=== PATIENT | male | born 1940 | race Caucasian/White ===

== ENCOUNTER 2016-04-13 15:56 | Inpatient (IN) | payer MEDICARE, OTHER ==
[~2016-04-13] VITALS: Ht 182.9 cm; Wt 76.9 kg
--- NOTE | 2016-04-13 16:29 | REP ---
Clinical: Trauma. Comparison: 03/23/2013 . Findings: Age-related atrophy with periventricular leukomalacia and microvascular ischemic changes are appreciated. A small sub centimeter high-density focus in the high left parietal lobe (image 24 - 25) may represent a small acute parenchymal contusion. No further intracranial hemorrhage or mass/mass effect is appreciated and no extra-axial hemorrhage or collection is identified. The ventricles and sulci are symmetric. Wiley-white differentiation is maintained. Calvarium is intact. Paranasal sinuses and mastoid air cells are clear. Impression: 1. Very small, subcentimeter parenchymal contusion in the high left parietal lobe cannot be excluded. No further significant acute intracranial pathology or trauma/injury appreciated. Follow-up at 6-12 hours may be warranted. 2. Age related atrophy and microvascular ischemic changes. Signed by Cale Romo MD 04/13/2016 04:21 P
--- NOTE | 2016-04-13 16:30 | REP ---
Clinical: Trauma . Technique: Axial noncontrast images from the skull base to the thoracic inlet with coronal and sagittal re-formations Findings: Moderate to early advanced multilevel degenerative disc osteophyte complexes noted throughout the cervical spine including osteophytosis, endplate sclerosis and disc space narrowing. Normal alignment and lordosis is maintained. Cervical vertebral bodies including transverse processes and spinous processes are intact and there is no evidence for acute fracture / compression injury or subluxation. Spinal canal is patent. Posterior elements are intact. Paravertebral soft tissues are normal. Impression: Moderate to early advanced multilevel degenerative changes. No evidence for acute pathology or trauma/injury. Signed by Cale Romo MD 04/13/2016 04:22 P
[2016-04-13 17:00] LABS: BASO # 0.1 K/mm3 (0.0-0.2); BASO % 1.1 % (0.0-1.0); EOS # 0.1 K/mm3 (0.0-0.50); EOS % 2.4 % (0.0-3.0); LARGE UNSTAINED CELL # 0.1 K/mm3 (0.0-0.4); LARGE UNSTAINED CELL % 1.9 % (0.0-4.0); LYMPH # 0.8 K/mm3 (1.5-4.5); LYMPH % 11.5 % (24.0-44.0); MEAN CORPUSCULAR HEMOGLOBIN 29.8 pg (27.0-33.0); MEAN CORPUSCULAR HGB CONC 33.4 g/dl (32.0-36.5); MEAN CORPUSCULAR VOLUME 89.1 fl (80.0-96.0); MONO # 0.5 K/mm3 (0.0-0.8); MONO % 7.6 % (0.0-5.0); NEUTROPHILS # 4.5 K/mm3 (1.8-7.7); NEUTROPHILS % 75.7 % (36.0-66.0); PLATELET COUNT, AUTOMATED 219 k/mm3 (150-450); RED CELL DISTRIBUTION WIDTH 14.4 % (11.5-14.5); WHITE BLOOD COUNT 5.9 K/mm3 (4.0-10.0)
--- NOTE | 2016-04-13 17:14 | REP ---
Clinical: Trauma. Fall. Technique: Axial noncontrast images through the facial bones to include the mandible with coronal and sagittal re-formations. Findings: The osseous structures are intact and there is no evidence for fracture or dislocation. Specifically, the bilateral zygomatic arches, nasal bones, and mandible including bilateral temporomandibular joints appear normal and symmetric. The sinuses and mastoid air cells are all well aerated and clear without fluid level to suggest occult trauma. The bilateral orbits including the globes and intraconal contents appear symmetric and normal. The surrounding soft tissues are grossly unremarkable. Impression: Normal maxillofacial CT. No evidence for acute pathology or trauma/injury. Signed by Cale Romo MD 04/13/2016 05:06 P
[2016-04-13 17:30] LABS: CALCIUM LEVEL 8.9 MG/DL (8.8-10.2); CREATININE FOR GFR 1.62 MG/DL (0.70-1.30); GLOMERULAR FILTRATION RATE 44.4 (>42); POTASSIUM SERUM 4.4 MEQ/L (3.5-5.1)
[2016-04-13] MEDS ORDERED: LIDOCAINE W/EPINEPHRINE 1% 20ML VIAL As Ordered ONE (18:23)
--- NOTE | 2016-04-13 19:16 | REP ---
Clinical: Chest pain. Technique: Supine AP. Comparison: 02/06/2010. Findings: The patient is status post sternotomy and valve replacement. Lung gross demonstrate chronic changes. No acute consolidation, effusion or pneumothorax. Skeletal structures intact. Impression: No acute cardiopulmonary process appreciated. Signed by Cale Romo MD 04/13/2016 07:08 P
--- NOTE | 2016-04-13 19:18 | REP ---
Clinical: Trauma. Fall. Technique: Internal rotation, external rotation, and Y view. Findings: Degenerative changes are appreciated including cortical irregularity and subtle spurring at the acromioclavicular joint and along the inferior margin of the humeral head as well as blunting to the glenoid rim and subacromial soft tissue calcifications. No acute fracture dislocation. Impression: Osteoarthritic degenerative changes. No acute fracture or dislocation. Signed by Cale Romo MD 04/13/2016 07:09 P
[2016-04-13] MEDS ORDERED: COLA100C PO (19:58)
[2016-04-13] MEDS ORDERED: FOLI1TAB2 PO (19:58)
[2016-04-13] MEDS ORDERED: ASPI81TA7 PO (19:58)
[2016-04-13] MEDS ORDERED: SYNT50TA PO (19:58)
[2016-04-13] MEDS ORDERED: RIVA1.5C PO (19:58)
[2016-04-13] MEDS ORDERED: DIGO0.12 PO (19:58)
[2016-04-13] MEDS ORDERED: AMIO20TA PO (19:58)
[2016-04-13] MEDS ORDERED: CART120C PO (19:58)
[2016-04-13] MEDS ORDERED: RANI150T PO (19:58)
[2016-04-13] MEDS ORDERED: VITA500T3 PO (19:58)
[2016-04-13] MEDS ORDERED: VITA200015 PO (19:58)
[2016-04-13] MEDS ORDERED: MEMA1TAB2 PO (19:58)
[2016-04-13] MEDS ORDERED: XARE20TA PO (19:58)
[2016-04-13] MEDS ORDERED: CITA40TA4 PO (19:58)
[2016-04-13] MEDS ORDERED: ATOR1TAB21 PO (19:59)
[2016-04-13] MEDS ORDERED: FERR325T16 PO (19:59)
--- NOTE | 2016-04-14 00:50 | REPUSA ---
CLINICAL HISTORY: Intracranial hemorrhage. Followup exam. TECHNIQUE: Multiple axial CT images were obtained through the brain without IV contrast material. COMMENTS: Comparison is made to the prior exam performed on 04/13/2016. No change in the previously described left frontal subcortical white matter intraparenchymal hemorrha ge. The largest focus measures 6 mm. No change in minimal associated edema. There is normal configuration of sella turcica. There are no intra or extra-axial collections. There is no mass effect or midline shift. No hydrocephalus is present. The ventricles are symmetrical. No a bnormal calcifications are present. There is diffuse age-appropriate cerebellar and cerebral atrophy with proportionally dilated ventricl es and cortical sulci. There are bilateral periventricular and subcortical white matter hypolucencies compatible with mild c hronic microvascular disease. IMPRESSION: No change is seen. Thank you for your kind referral of this patient.
[2016-04-14] MEDS ORDERED: ACETAMINOPHEN TAB 650MG DOSE (2X325MG) PO PRN (02:30)
[2016-04-14] MEDS ORDERED: DOCUSATE SODIUM 100 MG CAP PO PRN (02:30)
--- NOTE | 2016-04-14 02:43 | HPEPDOC ---
Medical History and Physical Date of Admission Apr 14, 2016 at 01:29 History and Physical PRIMARY CARE PROVIDER: Diamond Keyes CHIEF COMPLAINT: Trip and fall HISTORY OF PRESENT ILLNESS: Patient is a 75-year-old male with past medical history of atrial fibrillation on anticoagulation who presented to emergency department after a trip and fall. Patient says that he was out walking with his , tripped and fell face first onto some steps. He denies any dizziness, lightheadedness, chest pain/pressure, numbness, tingling, paresthesias, loss of sensation prior to the event. He is unsure if he lost consciousness. He says he is doing good now, he is complaining that his right eye is sore, hurts around the right side of his face and right shoulder.. He denies any headaches, says that his vision is okay, denies any numbness, tingling, paresthesias. Laceration repair by emergency department 3.5 cm full-thickness laceration to right eye, closed with 5-5.0 Ethilon simple interrupted sutures. ALLERGIES: None PAST MEDICAL HISTORY: Prostate cancer, right maxillary facial skin cancer, atrial fibrillation, femoral aneurysm, hypothyroidism, dyslipidemia, dementia, GERD, depression PAST SURGICAL HISTORY: Open-heart surgery 08/09/15, prostatectomy 07/31, AAA repair 08/09/15 SOCIAL HISTORY: Patient drinks alcohol 2-3 times per month. He denies any tobacco or recreational drug use. He currently lives with his CODE STATUS: Full code REVIEW OF SYSTEMS: Constitutional: denies fevers, chills, night sweats, recent weight gain/loss HEENT: Head: denies headaches, dizziness, light-headedness. Eyes: Positive for swelling around right eye, denies blurry vision, double vision. Ears: denies hearing loss, tinnitus, ear pain. Nose: Positive for nose pain, right-sided nasal pressure, denies rhinorrhea or postnasal drip. Throat: Positive for difficulty swallowing, denies sore throat Cardiovascular: denies chest discomfort/pain, palpitations Respiratory: denies shortness of breath, difficulty breathing Gastrointestinal: denies nausea, vomiting, diarrhea, constipation, abdominal pain, melena, hematochezia : denies dysuria, hematuria Musculoskeletal: Positive for pain on the right side of his face, right nose, right shoulder Neurological: denies numbness, tingling, paresthesias Lymphatics: denies palpable lymph nodes or swollen glands Integumentary: Positive for abrasions to face Endocrine: denies polyuria, polydipsia. PHYSICAL EXAMINATION: Vitals: Pulse 70, respiratory rate 64, blood pressure 130/76, pulse ox 97% on room air General: Patient awake, verbal and able to answer questions appropriately. He does not appear to be in any acute distress. He is oriented to person and location but not time HEENT: Head: Bruising present over face, abrasions to right side of scalp, sutured laceration present over right eye. Eyes: Soft tissue swelling surrounding right eye, pupils equally round and reactive to light, extraocular movements intact. Nose: Bruising present around nose. Throat: buccal mucosa is pink and moist with no lesions in the oropharynx Respiratory: clear to auscultation bilaterally with no wheezes, rales, or rhonchi. Cardiovascular: regular rate and rhythm, with no murmurs, rubs or gallops. Abdomen: soft, nontender, nondistended, no hepatosplenomegaly appreciated. Bowel sounds present. Extremities: Right shoulder tender to palpation, 5/5 strength in upper and lower extremities bilaterally, no swelling in either lower extremity bilaterally Neurological: sensation intact and symmetrical in upper and lower extremities bilaterally Lymphatics: no palpable lymph nodes, swollen glands Integumentary: Facial bruising, abrasion, sutured laceration Vascular: pulses palpable and symmetrical in upper and lower extremities bilaterally LABORATORY DATA: CBC: White blood cells 5.9, H&H 13.9/41.5, platelets 219 Chemistry: Sodium 137, potassium 4.4, chloride 100, carbon dioxide 30, BUN 21, creatinine 1.62 (this appears to be patient's baseline), glucose 102, calcium 8.9 Urine analysis: Color yellow, appearance clear, pH 8.0, specific gravity 1.018, 1+ protein, trace ketones, 2.0 urobilinogen, 1 white blood cell, 2 red blood cells, 1 hyaline cast. Negative for all of the following: Glucose, blood, nitrites, bilirubin, leukocyte esterase, bacteria, squamous epithelial cells MICROBOIOLOGY: Urine culture pending RADIOLOGY: Head CT: Very small subcentimeter parenchymal contusion in high left parietal lobe cannot be excluded, age-related atrophy and microvascular changes C-spine CT: Moderate to early advanced multilevel degenerative changes, no evidence for acute pathology or trauma Right shoulder x-ray: Osteoarthritic generative changes, no acute fracture or dislocation Maxillofacial CT: Normal maxillofacial CT, no evidence for acute pathology or trauma Chest x-ray: No acute cardiopulmonary process Repeat head CT: No change seen ASSESSMENT: Patient is a 75-year-old male with recent mechanical fall, history of atrial fibrillation on Xarelto. Patient will require admission for further observation , physical therapy, occupational therapy evaluation and may require placement. PLAN: #1: Status post mechanical fall with facial trauma. Patient will be admitted to [facility] under care of Dr. Leblanc. Emergency department spoke with Dr. Phillip. He suggested patient had a brain contusion and to repeat head CT in 4 hours and if patient was unchanged that he would likely need admission for unsteady gait with physical therapy and occupational therapy. Repeat head CT did not show any changes. Orders placed for physical therapy, occupational therapy, PFS consult to assess for potential placement needs. At this time we will hold patient's aspirin and Xarelto.. Orders placed for daily BMP, CBC. Due to patient's underlying dementia he will be given Tylenol 650 mg by mouth by mouth every 4 hours when necessary for pain or fever for pain control. #2: Atrial fibrillation: Order placed for home dose of amiodarone 200 mg by mouth daily, digoxin 0.125 mg by mouth daily, diltiazem 120 mg by mouth daily. Due to patient's fall we will hold aspirin Xarelto at this time. #3: Dyslipidemia: Order placed for home dose of Lipitor 20 mg by mouth daily. #4: Depression: Order placed for home dose of citalopram 40 mg by mouth daily #5: Constipation: Order placed for home dose of docusate 100 mg daily by mouth when necessary for constipation #6: GERD: Order placed for home dose of Pepcid 20 mg by mouth twice a day #7: Hypothyroidism: Order placed for home dose of Synthroid 0.05 mg by mouth daily #8: Dementia: Order placed for home dose of rivastigmine 1.5 mg by mouth daily #9: Vitamin D deficiency: Order placed for home dose of vitamin D 2000 units by mouth daily #10: DVT prophylaxis: Due to recent fall order placed for teds and sequentials My preceptor for this patient encounter was physically present in the building during the encounter and was fully available. As needed, all aspects of the patient interview, examination, medical decision making process, and medical care plan development were reviewed and approved by the preceptor. Preceptor is aware and concurs with the plan as stated in the body of this note and will attest to such by his/her cosignature. Vital Signs Pulse 70, respiratory rate 64, blood pressure 130/76, pulse ox 97% on room air Home Medications Scheduled Amiodarone HCl (Amiodarone HCl) 200 Mg Tab 200 MG PO DAILY Aspirin (Aspirin) 81 Mg Tab 81 MG PO DAILY Atorvastatin Calcium (Atorvastatin Calcium) 20 Mg Tab 20 MG PO DAILY Cholecalciferol (Vitamin D) 2,000 Unit Tab 2,000 UNIT PO DAILY Citalopram Hydrobromide (Citalopram Hydrobromide) 40 Mg Tab 40 MG PO DAILY Cyanocobalamin (Vitamin B-12) 500 Mcg Tab 500 MCG PO DAILY Digoxin (Digoxin) 0.125 Mg Tab 0.125 MG PO DAILY Diltiazem HCl (Cartia Xt) 120 Mg Cap 120 MG PO DAILY Ferrous Gluconate (Ferrous Gluconate) 324 Mg Tab 324 MG PO DAILY Folic Acid (Folic Acid) 1 Mg Tab 1 MG PO DAILY Levothyroxine Sodium (Synthroid) 50 Mcg Tab 50 MCG PO QAM Memantine Hydrochloride (Memantine HCl) 10 Mg Tab 10 MG PO DAILY Ranitidine HCl (Ranitidine HCl) 150 Mg Tab 1 TAB PO BID Rivaroxaban (Xarelto) 20 Mg Tab 20 MG PO QPM Rivastigmine Tartrate (Rivastigmine Tartrate) 1.5 Mg Cap 1.5 MG PO DAILY Scheduled PRN Docusate Sodium (Colace) 100 Mg Cap 100 MG PO DAILY PRN PRN BOWEL CARE/ CONSTIPATION Allergies Coded Allergies: No Known Allergies (Unverified , 05/26/13) DAVIS ROSE DO Apr 14, 2016 02:43
--- NOTE | 2016-04-14 03:02 | EDDOCDS ---
Physician Documentation [facility] Name: Dayton Gill Age: 75 yrs Sex: Male : 1940 Arrival Date: 04/13/2016 Time: 15:56 Bed 5 Private MD: Diamond Keyes L. Disposition: 04/14/16 01:12 Hospitalization ordered by Gamal Apodaca for Inpatient Admission. Preliminary diagnosis are Concussion without loss of consciousness, Abnormal findings on diagnostic imaging of central nervous system - cerebral contusion. - Bed requested for 4 [place]. - Status is Inpatient Admission. mateo - Condition is Stable. - Problem is an ongoing problem. - Symptoms are unchanged. Historical: - Allergies: no known allergies; - Home Meds: 1. aspirin 81 mg Oral tab 1 tab once daily 2. Cartia XT 120 mg Oral cp24 1 cap 3. digoxin 125 mcg Oral tab Unknown 4. amiodarone 200 mg Oral tab Unknown 5. Xarelto 20 mg oral tab 1 tab once daily 6. citalopram 40 mg Oral tab Unknown 7. memantine 10 mg oral tab Unknown 8. rivastigmine tartrate 1.5 mg oral cap Unknown 9. Folic Acid Oral Unknown 10. ranitidine HCl 150 mg Oral cap 1 cap 2 times per day 11. Colace 100 mg oral cap 1 cap once daily 12. levothyroxine 50 mcg Oral tab 1 tab once daily 13. Vitamin D Oral 2000 units daily 14. Vitamin B-12 500 mcg Oral lozg Unknown - PMHx: Atrial Fib; High Cholesterol; Dementia; GERD; Depression; Hypothyroidism; - Family history: Not pertinent. - Social history: Smoking status: Patient states former smoker of tobacco. No barriers to communication noted, The patient speaks fluent B[place], Speaks appropriately for age. - : The pt / caregiver states he / she is on anticoagulants: Xarelto Home medication list is obtained from the patient. - Exposure Risk Screening:: None identified. Vital Signs: 04/13 16:17 BP 124 / 75 (auto/); pml 16:18 Pulse 74 MON; Pulse Ox 96% ; pml 16:22 BP 124 / 75; Pulse 74; Resp 18; Pulse Ox 96% on R/A; Pain 8/10; pml 16:32 BP 120 / 78 (auto/); pml 16:33 Pulse 68 MON; Pulse Ox 98% ; pml 16:47 BP 124 / 77 (auto/); pml 16:48 Pulse 68 MON; Pulse Ox 98% ; pml 17:02 BP 127 / 79 (auto/); pml 17:03 Pulse 68 MON; Pulse Ox 98% ; pml 17:16 Pulse 68 MON; Pulse Ox 99% ; pml 17:17 BP 131 / 81 (auto/); pml 17:31 Pulse 62 MON; Pulse Ox 99% ; ko2 17:32 BP 129 / 71 (auto/); ko2 17:47 BP 127 / 70 (auto/); ko2 17:47 Pulse 62 MON; Pulse Ox 98% ; ko2 18:17 Pulse 62 MON; Pulse Ox 99% ; pml 18:17 BP 147 / 76 (auto/); pml 18:32 Pulse 64 MON; Pulse Ox 98% ; pml 18:32 BP 148 / 83 (auto/); pml 18:47 BP 148 / 82 (auto/); ko2 18:47 Pulse 66 MON; Pulse Ox 99% ; ko2 19:02 BP 142 / 82 (auto/); ko2 19:02 Pulse 64 MON; Pulse Ox 98% ; ko2 19:17 BP 139 / 80 (auto/); ko2 19:17 Pulse 62 MON; Pulse Ox 98% ; ko2 19:32 BP 137 / 78 (auto/); ko2 19:32 Pulse 64 MON; Pulse Ox 99% ; ko2 19:46 Pulse 64 MON; Pulse Ox 99% ; ko2 19:47 BP 135 / 78 (auto/); ko2 20:02 BP 139 / 80 (auto/); ko2 20:02 Pulse 62 MON; Pulse Ox 98% ; ko2 20:17 Pulse 64 MON; Pulse Ox 98% ; ko2 20:17 BP 142 / 80 (auto/); ko2 20:31 Pulse 64 MON; Pulse Ox 99% ; ko2 20:32 BP 147 / 79 (auto/); ko2 20:47 Pulse 86 MON; Pulse Ox 96% ; ko2 20:47 BP 144 / 88 (auto/); ko2 21:02 BP 142 / 85 (auto/); ko2 21:02 Pulse 80 MON; Pulse Ox 97% ; ko2 21:32 BP 134 / 80 (auto/); ko2 21:32 Pulse 74 MON; Pulse Ox 97% ; ko2 21:46 Pulse 64 MON; Pulse Ox 97% ; ko2 21:47 BP 138 / 84 (auto/); ko2 22:02 BP 151 / 76 (auto/); ko2 22:02 Pulse 62 MON; Pulse Ox 97% ; ko2 22:17 BP 130 / 76 (auto/); ko2 22:17 Pulse 72 MON; Pulse Ox 97% ; ko2 22:32 BP 135 / 71 (auto/); ko2 22:32 Pulse 64 MON; ko2 23:47 BP 130 / 76 (auto/); ko2 23:48 Pulse 70 MON; Pulse Ox 97% ; ko2 04/14 02:05 BP 129 / 78; Pulse 68; Resp 16; Temp 98.2; Pulse Ox 99% ; Pain 5/10; ko2 Procedures: 04/13 19:23 Laceration repair:. fg Laceration: 19:23 Wound Repair of 3.5cm ( 1.4in ) full thickness laceration to right eye. Distal fg neuro/vascular/tendon intact. Anesthesia: Local anesthetic administered with 2 mls of 1% lidocaine w/ Epi. Wound prep: Simple cleansing by nurse. Skin closed with 5 x 5-0 Ethilon using Simple interrupted sutures. Patient tolerated well. MDM: 16:04 CT Head Without Contrast Ordered. EDMS 16:04 CT Spine,Cervical W/o Contrast Ordered. EDMS 16:28 Apply Amee Collar to Patient. ordered. fg 16:29 Basic Metabolic Profile Ordered. EDMS 16:30 CBC with Diff Ordered. EDMS 16:30 Urinalysis Ordered. EDMS 16:30 Urine Culture Ordered. EDMS 16:30 Shoulder, Complete Ordered. EDMS 16:30 Chest, 1 View Ordered. EDMS 16:30 CT Maxilofacial W/out Contrast Ordered. EDMS 16:59 Financial registration complete. gjb 17:12 [facility] Payment Agreement was scanned into [employer] and attached to record. gjb 19:02 BED REQUEST+ADM ordered. EDMS 20:19 NS 0.9% 1000 ml IV at 100 mL/hr continuous ordered. mm11 20:[facility] Order ordered. mm11 20:20 [facility] Order complete. ml3 21:37 Basic Metabolic Profile Reviewed. mm11 21:37 CBC with Diff Reviewed. mm11 21:37 Urinalysis Reviewed. mm11 21:37 CT Head Without Contrast Reviewed. mm11 21:37 CT Spine,Cervical W/o Contrast Reviewed. mm11 21:37 CT Maxilofacial W/out Contrast Reviewed. mm11 21:37 Shoulder, Complete Reviewed. mm11 21:37 Chest, 1 View Reviewed. mm11 22:21 Misc Surgical Assistant Certified Order ordered. mm11 22:24 Mis Surgical Assistant Certified Order complete. ml3 22:26 CT Head without contrast Ordered. EDMS 04/14 01:33 Admission / Observation Status ordered. EDMS 02:31 LOW FAT LOW CHOLESTEROL DIET ordered. EDMS 02:32 COMPLETE BLOOD COUNT Ordered. EDMS 02:32 BASIC METABOLIC PROFILE Ordered. EDMS 02:33 PHYSICAL THERAPY EVAL & TREAT ordered. EDMS Administered Medications: 04/13 21:25 Drug: NS 0.9% 1000 ml [sodium chloride 0.9 % intravenous solution] Route: IV; Rate: 100 ko2 mL/hr; Site: right antecubital; Signatures: Dispatcher [employer] EDMS July Barragan RN RN jan Lopresti, Mary-Elizabeth, Supervisor [employer] ml3 Katarina Chaudhari RN RN [id number] Roldan Perez DO DO mm11 Lara CorreaRN RN pml Heydi Wing RN RN ko2 Sis Rojas MD MD fg Beck, Gabriela gjb The chart was reviewed and I authenticate all verbal orders and agree with the evaluation and treatment provided.Attachments: 17:12 [facility] Payment Agreement [email or web address] [email or web address]
--- NOTE | 2016-04-14 03:02 | EDDOCDS ---
Nurse's Notes [facility] Name: Dayton Gill Age: 75 yrs Sex: Male : 1940 Arrival Date: 04/13/2016 Time: 15:56 Bed 5 Private MD: Diamond Keyes L. Diagnosis: Concussion without loss of consciousness;Abnormal findings on diagnostic imaging of central nervous system-cerebral contusion Presentation: 04/13 16:01 Presenting complaint: EMS states: tripped and fell striking his head, denies LOC. pt is pml on blood thinners. Adult Sepsis Screening: The patient does not have new or worsening altered mentation. Patient's respiratory rate is less than 22. Systolic blood pressure is greater than 100. Patient has a qSOFA score of 0- Negative Sepsis Screen. Suicide/Homicide risk assessment- the patient denies having any suicidal and/or homicidal ideations and does not present with any other emotional, behavioral or mental health complaints. 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 Transition of care: patient was not received from another setting of care. 16:01 Acuity: KARTIK Level 2 pml 16:01 Method Of Arrival: Ambulance pml Triage Assessment: 16:22 General: Appears in no apparent distress, comfortable, Behavior is appropriate for age, pml cooperative. Pain: Location: anterior aspect of right shoulder Pain currently is 7 out of 10 on a pain scale. The patient is triaged at the bedside. See Assessment in Nurses Notes section of ED record. Neurological: Level of Consciousness is awake, alert, Oriented to person, place. Neurological: Reports feeling "off balance" just prior to fall. Cardiovascular: Capillary refill < 3 seconds Rhythm is sinus rhythm No ectopy. Respiratory: Airway is patent Respiratory effort is even, unlabored. GI: Abdomen is non- distended. Derm: Skin is pink, warm & dry. Musculoskeletal: Circulation, motion, and sensation intact Capillary refill is > 3 seconds. Injury Description: Abrasion sustained to anterior aspect of right shoulder is scabbed, Bruise sustained to right eye Laceration sustained to middle aspect of right eyebrow and outer aspect of right eyebrow is jagged, superficial, 2.6 to 7.5 cm long, bleeding controlled, large amount of bleeding. Historical: - Allergies: no known allergies; - Home Meds: 1. aspirin 81 mg Oral tab 1 tab once daily 2. Cartia XT 120 mg Oral cp24 1 cap 3. digoxin 125 mcg Oral tab Unknown 4. amiodarone 200 mg Oral tab Unknown 5. Xarelto 20 mg oral tab 1 tab once daily 6. citalopram 40 mg Oral tab Unknown 7. memantine 10 mg oral tab Unknown 8. rivastigmine tartrate 1.5 mg oral cap Unknown 9. Folic Acid Oral Unknown 10. ranitidine HCl 150 mg Oral cap 1 cap 2 times per day 11. Colace 100 mg oral cap 1 cap once daily 12. levothyroxine 50 mcg Oral tab 1 tab once daily 13. Vitamin D Oral 2000 units daily 14. Vitamin B-12 500 mcg Oral lozg Unknown - PMHx: Atrial Fib; High Cholesterol; Dementia; GERD; Depression; Hypothyroidism; - Family history: Not pertinent. - Social history: Smoking status: Patient states former smoker of tobacco. No barriers to communication noted, The patient speaks fluent Burmese, Speaks appropriately for age. - : The pt / caregiver states he / she is on anticoagulants: Xarelto Home medication list is obtained from the patient. - Exposure Risk Screening:: None identified. Screenin:25 Screening information is obtained from the patient. Fall risk: No risks identified. pml Assistance ADL's: requires no assistance with activities of daily living. Abuse/DV Screen: The patient / caregiver reports he/she is: not in a situation that causes fear, pain or injury. Nutritional screening: No deficits noted. Advance Directives: There is no active DNR order. home support is adequate. Assessment: 16:25 General: see triage note. pml 17:25 General: Appears in no apparent distress, comfortable, Behavior is appropriate for age, pml cooperative. Pain: Location: anterior aspect of right shoulder Pain currently is 8 out of 10 on a pain scale. Neurological: Level of Consciousness is awake, alert, Oriented to person, place, time. Cardiovascular: Capillary refill < 3 seconds. Respiratory: Airway is patent Respiratory effort is even, unlabored. Derm: Skin is pink, warm & dry. 17:30 General: C Collar removed as per MD Rojas. pml 18:41 General: Wound care completed, pt tolerated well. Resps easy and unlabored, skin p/w/d. pml MD Rojas at bedside for lac repair. 19:15 General: Appears in no apparent distress, comfortable, Behavior is appropriate for age, ko2 cooperative. Pain: Location: right eye and outer aspect of right eyebrow and middle aspect of right eyebrow and right arm and anterior aspect of right shoulder Pain currently is 4 out of 10 on a pain scale. Neurological: Level of Consciousness is awake, alert, Oriented to person, place, time. Respiratory: Airway is patent Respiratory effort is even, unlabored. Derm: Skin is pink, warm & dry. 20:34 General: Appears in no apparent distress, comfortable, Behavior is appropriate for age, ko2 cooperative. Neurological: Level of Consciousness is awake, alert, Oriented to person, place, time. Respiratory: Airway is patent Respiratory effort is even, unlabored. Derm: Skin is pink, warm & dry. 21:30 General: Appears in no apparent distress, comfortable, Behavior is appropriate for age, ko2 cooperative. Neurological: Level of Consciousness is awake, alert. Respiratory: Airway is patent Respiratory effort is even, unlabored. Derm: Skin is pink, warm & dry. 22:30 General: Appears in no apparent distress, comfortable, Behavior is appropriate for age, ko2 cooperative. Neurological: Level of Consciousness is awake, alert. Respiratory: Airway is patent Respiratory effort is even, unlabored. Derm: Skin is Bruising that is Swollen area noted. 23:44 General: Appears in no apparent distress, comfortable, Behavior is appropriate for age, ko2 cooperative. Respiratory: Airway is patent Respiratory effort is even, unlabored. 04/14 00:48 General: Appears in no apparent distress, comfortable, Behavior is appropriate for age, ko2 cooperative. Neurological: Level of Consciousness is awake, alert, Oriented to person, place, time. Respiratory: Airway is patent Respiratory effort is even, unlabored. Derm: Bruising that is Swollen area noted on right eye. 01:22 General: Appears in no apparent distress, comfortable, Behavior is appropriate for age, ko2 cooperative. Pain: Location: right eye. Neurological: Level of Consciousness is awake, alert, Oriented to person, place, time. Respiratory: Airway is patent Respiratory effort is even, unlabored. Derm: Skin is pink, warm & dry. 02:24 General: Appears in no apparent distress, comfortable, Behavior is appropriate for age, ko2 cooperative. Neurological: Level of Consciousness is awake, alert. Respiratory: Airway is patent Respiratory effort is even, unlabored. Derm: Skin is pink, warm & dry. Vital Signs: 02/18 16:17 BP 124 / 75 (auto/); pml 16:18 Pulse 74 MON; Pulse Ox 96% ; pml 16:22 BP 124 / 75; Pulse 74; Resp 18; Pulse Ox 96% on R/A; Pain 8/10; pml 16:32 BP 120 / 78 (auto/); pml 16:33 Pulse 68 MON; Pulse Ox 98% ; pml 16:47 BP 124 / 77 (auto/); pml 16:48 Pulse 68 MON; Pulse Ox 98% ; pml 17:02 BP 127 / 79 (auto/); pml 17:03 Pulse 68 MON; Pulse Ox 98% ; pml 17:16 Pulse 68 MON; Pulse Ox 99% ; pml 17:17 BP 131 / 81 (auto/); pml 17:31 Pulse 62 MON; Pulse Ox 99% ; ko2 17:32 BP 129 / 71 (auto/); ko2 17:47 BP 127 / 70 (auto/); ko2 17:47 Pulse 62 MON; Pulse Ox 98% ; ko2 18:17 Pulse 62 MON; Pulse Ox 99% ; pml 18:17 BP 147 / 76 (auto/); pml 18:32 Pulse 64 MON; Pulse Ox 98% ; pml 18:32 BP 148 / 83 (auto/); pml 18:47 BP 148 / 82 (auto/); ko2 18:47 Pulse 66 MON; Pulse Ox 99% ; ko2 19:02 BP 142 / 82 (auto/); ko2 19:02 Pulse 64 MON; Pulse Ox 98% ; ko2 19:17 BP 139 / 80 (auto/); ko2 19:17 Pulse 62 MON; Pulse Ox 98% ; ko2 19:32 BP 137 / 78 (auto/); ko2 19:32 Pulse 64 MON; Pulse Ox 99% ; ko2 19:46 Pulse 64 MON; Pulse Ox 99% ; ko2 19:47 BP 135 / 78 (auto/); ko2 20:02 BP 139 / 80 (auto/); ko2 20:02 Pulse 62 MON; Pulse Ox 98% ; ko2 20:17 Pulse 64 MON; Pulse Ox 98% ; ko2 20:17 BP 142 / 80 (auto/); ko2 20:31 Pulse 64 MON; Pulse Ox 99% ; ko2 20:32 BP 147 / 79 (auto/); ko2 20:47 Pulse 86 MON; Pulse Ox 96% ; ko2 20:47 BP 144 / 88 (auto/); ko2 21:02 BP 142 / 85 (auto/); ko2 21:02 Pulse 80 MON; Pulse Ox 97% ; ko2 21:32 BP 134 / 80 (auto/); ko2 21:32 Pulse 74 MON; Pulse Ox 97% ; ko2 21:46 Pulse 64 MON; Pulse Ox 97% ; ko2 21:47 BP 138 / 84 (auto/); ko2 22:02 BP 151 / 76 (auto/); ko2 22:02 Pulse 62 MON; Pulse Ox 97% ; ko2 22:17 BP 130 / 76 (auto/); ko2 22:17 Pulse 72 MON; Pulse Ox 97% ; ko2 22:32 BP 135 / 71 (auto/); ko2 22:32 Pulse 64 MON; ko2 23:47 BP 130 / 76 (auto/); ko2 23:48 Pulse 70 MON; Pulse Ox 97% ; ko2 04/14 02:05 BP 129 / 78; Pulse 68; Resp 16; Temp 98.2; Pulse Ox 99% ; Pain 5/10; ko2 Vitals: 04/13 16:12 Log In Time N/A - ambulance arrival. pml ED Course: 15:57 Patient visited by Sachi Helton PCA. ar3 15:57 Lara Correa,RN is Primary Nurse. ar3 15:57 Diamond Keyes is Private Physician. ar3 15:57 Patient moved to Waiting ar3 15:57 Patient moved to 5 ar3 16:02 Triage Initiated pml 16:06 Sis Rojas MD is Attending Physician. fg 16:06 Patient visited by Sis Rojas MD. fg 16:25 Patient visited by Lara Correa,JOJO. pml 16:25 The patient / caregiver is instructed regarding the plan of care and ED course. Patient pml has correct armband on for positive identification. Placed in gown. Bed in low position. Call light in reach. Side rails up X2. telemetry monitor on. Pulse ox on. NIBP on. 16:39 CT Head Without Contrast Returned. EDMS 16:39 CT Spine,Cervical W/o Contrast Returned. EDMS 17:12 [facility] [place] into [employer] and attached to record. gjb 17:26 Patient visited by Lara Correa RN. pml 17:30 Patient visited by Lara Correa RN. pml 17:31 CT Maxilofacial W/out Contrast Returned. EDMS 18:42 Patient visited by Lara Correa RN. pml 19:04 Heydi Wing RN is Primary Nurse. ko2 19:17 Chest, 1 View Returned. EDMS 19:25 Attending Physician role handed off by Sis Rojas MD mm11 19:25 Roldan Perez DO is Attending Physician. mm11 19:25 Patient visited by Roldan Perez DO. mm11 19:29 Primary Nurse role handed off by Lara Correa RN demetrius 20:11 Shoulder, Complete Returned. EDMS 20:33 Patient visited by Heydi Wing RN. ko2 20:33 Patient visited by Isabel Johnson PCA. demetrius 20:46 Urinalysis Sent. demetrius 20:46 Urine Culture Sent. demetrius 21:25 Patient visited by Heydi Wing RN. ko2 21:25 Inserted saline lock: 20 gauge in right antecubital area. ko2 22:22 Patient visited by Roldan Perez DO. mm11 23:26 Patient visited by Heydi Wing RN. ko2 02 00:20 Patient visited by Heydi Wing RN. ko2 00:50 Patient visited by Heydi Wing RN. ko2 01:01 CT Head without contrast Returned. EDMS 01:11 Gamal Apodaca DO is Hospitalizing Provider. mm11 02:39 No procedures done that require assistance. ko2 Administered Medications: 04/13 21:25 Drug: NS 0.9% 1000 ml [sodium chloride 0.9 % intravenous solution] Route: IV; Rate: 100 ko2 mL/hr; Site: right antecubital; Order Results: Lab Order: Basic Metabolic Profile; SPEC'M 04/13/16 16:52 Test: GLUCOSE, FASTING; Value: 102; Range: 83-110; Units: MG/DL; Status: F Test: BLOOD UREA NITROGEN; Value: 21; Range: 7-18; Abnormal: Above high normal; Units: MG/DL; Status: F Test: CREATININE FOR GFR; Value: 1.62; Range: 0.70-1.30; Abnormal: Above high normal; Units: MG/DL; Status: F Test: GLOMERULAR FILTRATION RATE; Value: 44.4; Range: >42; Status: F Test: SODIUM LEVEL; Value: 137; Range: 136-145; Units: MEQ/L; Status: F Test: POTASSIUM SERUM; Value: 4.4; Range: 3.5-5.1; Units: MEQ/L; Status: F Test: CHLORIDE LEVEL; Value: 100; Range: 98-107; Units: MEQ/L; Status: F Test: CARBON DIOXIDE LEVEL; Value: 30; Range: 21-32; Units: MEQ/L; Status: F Test: ANION GAP; Value: 7; Range: 8-16; Abnormal: Below low normal; Units: MEQ/L; Status: F Test: CALCIUM LEVEL; Value: 8.9; Range: 8.8-10.2; Units: MG/DL; Status: F Test Note: ; Units are mL/min/1.73 m2 Chronic Kidney Disease Staging per NKF: Stage I & II GFR >=60 Normal to Mildly Decreased Stage III GFR 30-59 Moderately Decreased Stage IV GFR 15-29 Severely Decreased Stage V GFR <15 Very Little GFR Left ESRD GFR <15 on SHOWER ROOM ATTENDANT Lab Order: CBC with Diff; SPEC'M 04/13/16 16:52 Test: WHITE BLOOD COUNT; Value: 5.9; Range: 4.0-10.0; Units: K/mm3; Status: F Test: RED BLOOD COUNT; Value: 4.65; Range: 4.30-6.10; Units: M/mm3; Status: F Test: HEMOGLOBIN; Value: 13.9; Range: 14.0-18.0; Abnormal: Below low normal; Units: g/dl; Status: F Test: HEMATOCRIT; Value: 41.5; Range: 42.0-52.0; Abnormal: Below low normal; Units: %; Status: F Test: MEAN CORPUSCULAR VOLUME; Value: 89.1; Range: 80.0-96.0; Units: fl; Status: F Test: MEAN CORPUSCULAR HEMOGLOBIN; Value: 29.8; Range: 27.0-33.0; Units: pg; Status: F Test: MEAN CORPUSCULAR HGB CONC; Value: 33.4; Range: 32.0-36.5; Units: g/dl; Status: F Test: RED CELL DISTRIBUTION WIDTH; Value: 14.4; Range: 11.5-14.5; Units: %; Status: F Test: PLATELET COUNT, AUTOMATED; Value: 219; Range: 150-450; Units: k/mm3; Status: F Test: NEUTROPHILS %; Value: 75.7; Range: 36.0-66.0; Abnormal: Above high normal; Units: %; Status: F Test: LYMPH %; Value: 11.5; Range: 24.0-44.0; Abnormal: Below low normal; Units: %; Status: F Test: MONO %; Value: 7.6; Range: 0.0-5.0; Abnormal: Above high normal; Units: %; Status: F Test: EOS %; Value: 2.4; Range: 0.0-3.0; Units: %; Status: F Test: BASO %; Value: 1.1; Range: 0.0-1.0; Abnormal: Above high normal; Units: %; Status: F Test: LARGE UNSTAINED CELL %; Value: 1.9; Range: 0.0-4.0; Units: %; Status: F Test: NEUTROPHILS #; Value: 4.5; Range: 1.8-7.7; Units: K/mm3; Status: F Test: LYMPH #; Value: 0.8; Range: 1.5-4.5; Abnormal: Below low normal; Units: K/mm3; Status: F Test: MONO #; Value: 0.5; Range: 0.0-0.8; Units: K/mm3; Status: F Test: EOS #; Value: 0.1; Range: 0.0-0.50; Units: K/mm3; Status: F Test: BASO #; Value: 0.1; Range: 0.0-0.2; Units: K/mm3; Status: F Test: LARGE UNSTAINED CELL #; Value: 0.1; Range: 0.0-0.4; Units: K/mm3; Status: F Lab Order: Urinalysis; SPEC'M 04/13/16 20:44 Test: APPEARANCE, URINE; Value: CLEAR; Range: CLEAR; Status: F Test: COLOR, URINE; Value: YELLOW; Range: YELLOW; Status: F Test: PH,URINE; Value: 8.0; Range: 5.0-9.0; Units: UNITS; Status: F Test: SPECIFIC GRAVITY URINE AUTO; Value: 1.018; Range: 1.002-1.035; Status: F Test: PROTEIN, URINE AUTO; Value: 1+; Range: NEGATIVE; Abnormal: Above high normal; Units: mg/dL; Status: F Test: GLUCOSE, URINE (UA) AUTO; Value: NEGATIVE; Range: NEGATIVE; Units: mg/dL; Status: F Test: KETONE, URINE AUTO; Value: TRACE; Range: NEGATIVE; Abnormal: Above high normal; Units: mg/dL; Status: F Test: UROBILINOGEN, URINE AUTO; Value: 2.0; Range: 0.0-2.0; Abnormal: Above high normal; Units: mg/dL; Status: F Test: BILIRUBIN, URINE AUTO; Value: NEGATIVE; Range: NEGATIVE; Status: F Test: NITRITE, URINE AUTO; Value: NEGATIVE; Range: NEGATIVE; Status: F Test: LEUKOCYTE ESTERASE, URINE AUTO; Value: NEGATIVE; Range: NEGATIVE; Status: F Test: BLOOD, URINE BLOOD; Value: NEGATIVE; Range: NEGATIVE; Status: F Test: WBC, URINE AUTO; Value: 1; Range: 0-3; Units: /HPF; Status: F Test: RBC, URINE AUTO; Value: 2; Range: 0-3; Units: /HPF; Status: F Test: BACTERIA, URINE AUTO; Value: NEGATIVE; Range: NEGATIVE; Status: F Test: SQUAMOUS EPITHELIAL CELL UR AU; Value: 0; Range: 0-6; Units: /HPF; Status: F Test: MUCUS, URINE; Value: SMALL; Range: NEGATIVE; Status: F Test: HYALINE CAST, URINE AUTO; Value: 1; Range: 0-1; Units: /LPF; Status: F Radiology Order: CT Head Without Contrast Test: CT Head Without Contrast REASON FOR EXAMINATION: Trauma; Clinical: Trauma.; ; Comparison: 03/23/2013 .; ; Findings:; Age-related atrophy with periventricular leukomalacia and microvascular ischemic; changes are appreciated. A small sub centimeter high-density focus in the high; left parietal lobe (image 24 - 25) may represent a small acute parenchymal; contusion. No further intracranial hemorrhage or mass/mass effect is appreciated; and no extra-axial hemorrhage or collection is identified. The ventricles and; sulci are symmetric. Wiley-white differentiation is maintained. Calvarium is; intact. Paranasal sinuses and mastoid air cells are clear.; ; Impression:; 1. Very small, subcentimeter parenchymal contusion in the high left parietal; lobe cannot be excluded. No further significant acute intracranial pathology or; trauma/injury appreciated. Follow-up at 6-12 hours may be warranted.; 2. Age related atrophy and microvascular ischemic changes.; ; ; ; Signed by; Cale Romo MD 04/13/2016 04:21 P; Radiology Order: CT Spine,Cervical W/o Contrast Test: CT Spine,Cervical W/o Contrast REASON FOR EXAMINATION: Trauma; Clinical: Trauma .; ; Technique: Axial noncontrast images from the skull base to the thoracic inlet; with coronal and sagittal re-formations; ; Findings:; Moderate to early advanced multilevel degenerative disc osteophyte complexes; noted throughout the cervical spine including osteophytosis, endplate sclerosis; and disc space narrowing. Normal alignment and lordosis is maintained. Cervical; vertebral bodies including transverse processes and spinous processes are intact; and there is no evidence for acute fracture / compression injury or subluxation.; Spinal canal is patent. Posterior elements are intact. Paravertebral soft; tissues are normal.; ; Impression:; Moderate to early advanced multilevel degenerative changes.; No evidence for acute pathology or trauma/injury.; ; ; Signed by; Cale Romo MD 04/13/2016 04:22 P; Radiology Order: CT Maxilofacial W/out Contrast Test: CT Maxilofacial W/out Contrast REASON FOR EXAMINATION: fall; Clinical: Trauma. Fall.; ; Technique: Axial noncontrast images through the facial bones to include the; mandible with coronal and sagittal re-formations.; ; Findings:; The osseous structures are intact and there is no evidence for fracture or; dislocation. Specifically, the bilateral zygomatic arches, nasal bones, and; mandible including bilateral temporomandibular joints appear normal and; symmetric. The sinuses and mastoid air cells are all well aerated and clear; without fluid level to suggest occult trauma. The bilateral orbits including the; globes and intraconal contents appear symmetric and normal. The surrounding soft; tissues are grossly unremarkable.; ; Impression:; Normal maxillofacial CT.; No evidence for acute pathology or trauma/injury.; ; ; Signed by; Cale Romo MD 04/13/2016 05:06 P; Radiology Order: Shoulder, Complete Test: Shoulder, Complete REASON FOR EXAMINATION: fall; Clinical: Trauma. Fall.; ; Technique: Internal rotation, external rotation, and Y view.; ; Findings:; Degenerative changes are appreciated including cortical irregularity and subtle; spurring at the acromioclavicular joint and along the inferior margin of the; humeral head as well as blunting to the glenoid rim and subacromial soft tissue; calcifications. No acute fracture dislocation.; ; Impression:; Osteoarthritic degenerative changes.; No acute fracture or dislocation.; ; ; Signed by; Cale Romo MD 04/13/2016 07:09 P; Radiology Order: Chest, 1 View Test: Chest, 1 View REASON FOR EXAMINATION: Chest Pain; Clinical: Chest pain.; ; Technique: Supine AP.; ; Comparison: 02/06/2010.; ; Findings:; The patient is status post sternotomy and valve replacement. Lung gross; demonstrate chronic changes. No acute consolidation, effusion or pneumothorax.; Skeletal structures intact.; ; Impression:; No acute cardiopulmonary process appreciated.; ; ; Signed by; Cale Romo MD 04/13/2016 07:08 P; Radiology Order: CT Head without contrast Test: CT Head without contrast REASON FOR EXAMINATION: NEUROSURGEON REQUEST, RE-EVAL HEAD BLEED; ; CLINICAL HISTORY: Intracranial hemorrhage. Followup exam.; TECHNIQUE: Multiple axial CT images were obtained through the brain without IV contrast material.; COMMENTS:; Comparison is made to the prior exam performed on 04/13/2016.; No change in the previously described left frontal subcortical white matter intraparenchymal hemorrha; ge.; The largest focus measures 6 mm.; No change in minimal associated edema.; There is normal configuration of sella turcica. There are no intra or extra-axial collections. There; is no mass effect or midline shift. No hydrocephalus is present. The ventricles are symmetrical. No a; bnormal calcifications are present.; There is diffuse age-appropriate cerebellar and cerebral atrophy with proportionally dilated ventricl; es and cortical sulci.; There are bilateral periventricular and subcortical white matter hypolucencies compatible with mild c; hronic microvascular disease.; IMPRESSION:; No change is seen.; Thank you for your kind referral of this patient.; ; ; Outcome: 04/14 01:12 Decision to Hospitalize by Provider. mm11 01:22 CT Study completed. ko2 02:38 Discharge Assessment: Patient awake, alert and oriented x 3. No cognitive and/or ko2 functional deficits noted. Patient verbalized understanding of disposition instructions. patient administered narcotics - no. The following High Risk Discharge criteria are identified: None. Admitted to Med/Surg accompanied by tech, via stretcher, with chart. Condition: stable. Admission hand-off: Report Faxed Fax receipt verified by JOJO Tovar 4 PAV. 02:39 Property :Personal belongings accompany Pt. ko2 03:00 Patient left the ED. mateo Signatures: Dispatcher [employer] EDMS July Barragan RN RN jan Maynard, Matthew, DO mm11 Sachi Helton, HOME DESIGNER HOME DESIGNER ar3 Isabel Johnson, HOME DESIGNER HOME DESIGNER demetrius Lara Correa RN RN pml Ogden, Kari, RN RN ko2 Sis Rojas MD MD fg Beck, Gabriela gjb MTDD
[2016-04-14 03:05] VITALS: BP 122/68
[2016-04-14 06:00] VITALS: BP 123/73
[2016-04-14] MEDS ORDERED: LEVOTHYROXINE 0.05 MG TAB (50 MCG) PO SCH (06:00)
[2016-04-14 06:05] LABS: MEAN CORPUSCULAR HEMOGLOBIN 30.1 pg (27.0-33.0); MEAN CORPUSCULAR HGB CONC 33.8 g/dl (32.0-36.5); MEAN CORPUSCULAR VOLUME 89.2 fl (80.0-96.0); RED CELL DISTRIBUTION WIDTH 14.3 % (11.5-14.5); WHITE BLOOD COUNT 6.3 K/mm3 (4.0-10.0)
[2016-04-14 06:21] LABS: CREATININE FOR GFR 1.46 MG/DL (0.70-1.30); GLOMERULAR FILTRATION RATE 50.1 (>42); POTASSIUM SERUM 4.2 MEQ/L (3.5-5.1)
[2016-04-14 08:06] VITALS: BP 123/73
[2016-04-14] MEDS ORDERED: FAMOTIDINE 20 MG TAB PO SCH (09:00)
[2016-04-14] MEDS ORDERED: FERROUS GLUCONATE 324 MG TAB PO SCH (09:00)
[2016-04-14] MEDS ORDERED: ATORVASTATIN 20 MG TAB PO SCH (09:00)
[2016-04-14] MEDS ORDERED: RIVASTIGMINE TARTRATE 1.5 MG CAP (EXELON) PO SCH (09:00)
[2016-04-14] MEDS ORDERED: CitaloPRAM (CeleXA) 20 MG TAB PO SCH (09:00)
[2016-04-14] MEDS ORDERED: AMIODARONE 200 MG TAB (PACERONE) PO SCH (09:00)
[2016-04-14] MEDS ORDERED: FOLIC ACID 1 MG TAB PO SCH (09:00)
[2016-04-14] MEDS ORDERED: VITAMIN D 1,000 INTERNATIONAL UNITS TABLET PO SCH (09:00)
[2016-04-14] MEDS ORDERED: DIGOXIN 0.125 MG TAB PO SCH (09:00)
[2016-04-14] MEDS ORDERED: CYANOCOBALAMIN 500 MCG TAB PO SCH (09:00)
--- NOTE | 2016-04-14 17:42 | DSES ---
DATE OF ADMISSION: 04/14/2016 DATE OF DISCHARGE: 04/14/2016 ATTENDING PHYSICIAN: Dr. Rosanne Leblanc PRIMARY CARE PHYSICIAN: Dr. Diamond Estrada REFERRING PHYSICIAN: None. CONSULTING PHYSICIANS: None. CONDITION IN DISCHARGE: Stable. FINAL DIAGNOSIS: Contusions and lacerations to face and scalp secondary to mechanical fall. PROCEDURES: Patient had suture repair in the emergency room of his scalp laceration. HISTORY OF PRESENT ILLNESS: Patient is a 75-year-old male with past medical history of prostate cancer, history of skin cancer, femoral aneurysm, hyperthyroidism, dyslipidemia, dementia, gastroesophageal reflux disease, depression, abdominal aortic aneurysm repair in July of 2015, atrial fibrillation, coronary artery disease status post coronary artery bypass graft in July 2015. Patient also had prior ablation for his atrial fibrillation and had clipping of his atrial appendage at the same time. Patient presented to the emergency room after he had a mechanical fall, patient was ambulating and trying to get up the stairs, patient was walking without any assistance and had tripped and fell face first onto some steps. He did not have dizziness, lightheadedness, chest pressure or pain, numbness, tingling or paraesthesias, he denied any loss of consciousness, was awake during the entire time, his was present who arrived and contacted EMS who brought him into the emergency room. HOSPITAL COURSE: In the emergency room patient was found to have several contusions. 1. Contusions, laceration to the face likely secondary to mechanical fall, was repaired in the emergency room. 2. CT scan initially showed a very small subcentimeter parenchymal contusion in the high left parietal lobe. Patient subsequently had imaging that was done about 6 hours later which revealed there is no change. Consultation was made with Dr. Phillip who recommended to get the repeat imaging after 4-6 hours and it was completed and it was negative for any change. At that point he was admitted for physical therapy and occupational therapy who evaluated the patient and recommended return to prior level of care. Patient's family was available at bed side, discussed with the family and with the patient, patient wants to go home. As per physical therapy recommendations and he is able to go back home at the care of his . 3. Atrial fibrillation. Patient was initially put on anticoagulation for his atrial fibrillation, however at this point Xarelto will be discontinued. I have contacted his advertising representative, Dr. Stewart, who has indicated that his risk of stroke from atrial fibrillation is low given that he is now in sinus rhythm and he had his atrial appendage clipped. He is continued with amiodarone and Digoxin as well as Diltiazem for rate control. 4. Dyslipidemia. No report of depression. 5. Constipation. 6. Gastroesophageal reflux disease. 7. Hyperthyroidism, 8. Dementia. 9. Vitamin D deficiency. 10. Deep vein thrombosis prophylaxis. He has been put on sleep compression devices. DISCHARGE MEDICATIONS: Patient will be discharged home with the following medications- - amiodarone 200 mg by mouth every day - aspirin 81 mg by mouth every day - atorvastatin 20 mg by mouth every day - Cholecalciferol 2000 units by mouth every day - citalopram 40 mg every day - vitamin B12 500 mcg by mouth every day - Digoxin 0.125 mg by mouth every day - diltiazem 120 mg by mouth every day - Docusate 100 mg by mouth daily - ferrous sulfate 325 mg by mouth every day - folic acid 1 mg by mouth every day - levothyroxine 50 mcg by mouth every morning - memantine 10 mg by mouth every day - ranitidine 1 tab by mouth twice a day - rivastigmine 1.5 mg by mouth every day MEDICATIONS WHICH WERE STOPPED: Included - Xarelto 20 mg every evening DISCHARGE INSTRUCTIONS: Patient was advised to follow up with his primary care provider and advertising representative within the next 5 days. He has been advised to remain compliant with treatment plan and medications and return to the emergency room if he experiences any problems. TIME SPENT ON DISCHARGE: 35 minutes MTDD
--- NOTE | 2016-04-16 04:01 | EDDOCDS ---
Physician Documentation [facility] Name: Dayton Gill Age: 75 yrs Sex: Male : 1940 Arrival Date: 04/13/2016 Time: 15:56 Bed 5 Private MD: Diamond Keyes L. Disposition: 04/14/16 01:12 Hospitalization ordered by Gamal Apodaca for Inpatient Admission. Preliminary diagnosis are Concussion without loss of consciousness, Abnormal findings on diagnostic imaging of central nervous system - cerebral contusion. - Bed requested for 4 [place]. - Status is Inpatient Admission. mateo - Condition is Stable. - Problem is an ongoing problem. - Symptoms are unchanged. Historical: - Allergies: no known allergies; - Home Meds: 1. aspirin 81 mg Oral tab 1 tab once daily 2. Cartia XT 120 mg Oral cp24 1 cap 3. digoxin 125 mcg Oral tab Unknown 4. amiodarone 200 mg Oral tab Unknown 5. Xarelto 20 mg oral tab 1 tab once daily 6. citalopram 40 mg Oral tab Unknown 7. memantine 10 mg oral tab Unknown 8. rivastigmine tartrate 1.5 mg oral cap Unknown 9. Folic Acid Oral Unknown 10. ranitidine HCl 150 mg Oral cap 1 cap 2 times per day 11. Colace 100 mg oral cap 1 cap once daily 12. levothyroxine 50 mcg Oral tab 1 tab once daily 13. Vitamin D Oral 2000 units daily 14. Vitamin B-12 500 mcg Oral lozg Unknown - PMHx: Atrial Fib; High Cholesterol; Dementia; GERD; Depression; Hypothyroidism; - Family history: Not pertinent. - Social history: Smoking status: Patient states former smoker of tobacco. No barriers to communication noted, The patient speaks fluent [place], Speaks appropriately for age. - : The pt / caregiver states he / she is on anticoagulants: Xarelto Home medication list is obtained from the patient. - Exposure Risk Screening:: None identified. Vital Signs: 04/13 16:17 BP 124 / 75 (auto/); pml 16:18 Pulse 74 MON; Pulse Ox 96% ; pml 16:22 BP 124 / 75; Pulse 74; Resp 18; Pulse Ox 96% on R/A; Pain 8/10; pml 16:32 BP 120 / 78 (auto/); pml 16:33 Pulse 68 MON; Pulse Ox 98% ; pml 16:47 BP 124 / 77 (auto/); pml 16:48 Pulse 68 MON; Pulse Ox 98% ; pml 17:02 BP 127 / 79 (auto/); pml 17:03 Pulse 68 MON; Pulse Ox 98% ; pml 17:16 Pulse 68 MON; Pulse Ox 99% ; pml 17:17 BP 131 / 81 (auto/); pml 17:31 Pulse 62 MON; Pulse Ox 99% ; ko2 17:32 BP 129 / 71 (auto/); ko2 17:47 BP 127 / 70 (auto/); ko2 17:47 Pulse 62 MON; Pulse Ox 98% ; ko2 18:17 Pulse 62 MON; Pulse Ox 99% ; pml 18:17 BP 147 / 76 (auto/); pml 18:32 Pulse 64 MON; Pulse Ox 98% ; pml 18:32 BP 148 / 83 (auto/); pml 18:47 BP 148 / 82 (auto/); ko2 18:47 Pulse 66 MON; Pulse Ox 99% ; ko2 19:02 BP 142 / 82 (auto/); ko2 19:02 Pulse 64 MON; Pulse Ox 98% ; ko2 19:17 BP 139 / 80 (auto/); ko2 19:17 Pulse 62 MON; Pulse Ox 98% ; ko2 19:32 BP 137 / 78 (auto/); ko2 19:32 Pulse 64 MON; Pulse Ox 99% ; ko2 19:46 Pulse 64 MON; Pulse Ox 99% ; ko2 19:47 BP 135 / 78 (auto/); ko2 20:02 BP 139 / 80 (auto/); ko2 20:02 Pulse 62 MON; Pulse Ox 98% ; ko2 20:17 Pulse 64 MON; Pulse Ox 98% ; ko2 20:17 BP 142 / 80 (auto/); ko2 20:31 Pulse 64 MON; Pulse Ox 99% ; ko2 20:32 BP 147 / 79 (auto/); ko2 20:47 Pulse 86 MON; Pulse Ox 96% ; ko2 20:47 BP 144 / 88 (auto/); ko2 21:02 BP 142 / 85 (auto/); ko2 21:02 Pulse 80 MON; Pulse Ox 97% ; ko2 21:32 BP 134 / 80 (auto/); ko2 21:32 Pulse 74 MON; Pulse Ox 97% ; ko2 21:46 Pulse 64 MON; Pulse Ox 97% ; ko2 21:47 BP 138 / 84 (auto/); ko2 22:02 BP 151 / 76 (auto/); ko2 22:02 Pulse 62 MON; Pulse Ox 97% ; ko2 22:17 BP 130 / 76 (auto/); ko2 22:17 Pulse 72 MON; Pulse Ox 97% ; ko2 22:32 BP 135 / 71 (auto/); ko2 22:32 Pulse 64 MON; ko2 23:47 BP 130 / 76 (auto/); ko2 23:48 Pulse 70 MON; Pulse Ox 97% ; ko2 04/14 02:05 BP 129 / 78; Pulse 68; Resp 16; Temp 98.2; Pulse Ox 99% ; Pain 5/10; ko2 Procedures: 04/13 19:23 Laceration repair:. fg Laceration: 19:23 Wound Repair of 3.5cm ( 1.4in ) full thickness laceration to right eye. Distal fg neuro/vascular/tendon intact. Anesthesia: Local anesthetic administered with 2 mls of 1% lidocaine w/ Epi. Wound prep: Simple cleansing by nurse. Skin closed with 5 x 5-0 Ethilon using Simple interrupted sutures. Patient tolerated well. MDM: 16:04 CT Head Without Contrast Ordered. EDMS 16:04 CT Spine,Cervical W/o Contrast Ordered. EDMS 16:28 Apply Amee Collar to Patient. ordered. fg 16:29 Basic Metabolic Profile Ordered. EDMS 16:30 CBC with Diff Ordered. EDMS 16:30 Urinalysis Ordered. EDMS 16:30 Urine Culture Ordered. EDMS 16:30 Shoulder, Complete Ordered. EDMS 16:30 Chest, 1 View Ordered. EDMS 16:30 CT Maxilofacial W/out Contrast Ordered. EDMS 16:59 Financial registration complete. gjb 17:12 [facility] Payment Agreement was scanned into [employer] and attached to record. gjb 19:02 BED REQUEST+ADM ordered. EDMS 20:19 NS 0.9% 1000 ml IV at 100 mL/hr continuous ordered. mm11 20:20 [facility] [employer] Order ordered. mm11 20:20 [facility] [employer] Order complete. ml3 21:37 Basic Metabolic Profile Reviewed. mm11 21:37 CBC with Diff Reviewed. mm11 21:37 Urinalysis Reviewed. mm11 21:37 CT Head Without Contrast Reviewed. mm11 21:37 CT Spine,Cervical W/o Contrast Reviewed. mm11 21:37 CT Maxilofacial W/out Contrast Reviewed. mm11 21:37 Shoulder, Complete Reviewed. mm11 21:37 Chest, 1 View Reviewed. mm11 22:21 [facility] [employer] Order ordered. mm11 22:24 [facility] [employer] Order complete. ml3 22:26 CT Head without contrast Ordered. EDMS 04/14 01:33 Admission / Observation Status ordered. EDMS 02:31 LOW FAT LOW CHOLESTEROL DIET ordered. EDMS 02:32 COMPLETE BLOOD COUNT Ordered. EDMS 02:32 BASIC METABOLIC PROFILE Ordered. EDMS 02:33 PHYSICAL THERAPY EVAL & TREAT ordered. EDMS 09:00 T-Sheet-- Draft Copy was scanned into [employer] and attached to record. jp5 04/15 11:11 Radiology Report was scanned into [employer] and attached to record. gb Administered Medications: 04/13 21:25 Drug: NS 0.9% 1000 ml [sodium chloride 0.9 % intravenous solution] Route: IV; Rate: 100 ko2 mL/hr; Site: right antecubital; Signatures: Dispatcher [employer] EDUT July Barragan RN RN jan Barnhardt, Gloria, Reg Reg gb Param Merrill, Pool Table Operator Unit ml3 Katarina Chaudhari, RN RN [id number] Roldan Perez, DO mm11 Lara Correa RN RN pml Ogden, Kari, RN RN ko2 Favian Bellamy jp5 Sis Rojas MD MD fg Beck, Gabriela gjb The chart was reviewed and I authenticate all verbal orders and agree with the evaluation and treatment provided.Attachments: 17:12 [facility] Payment Agreement gjb 04/14 09:00 T-Sheet-- Draft Copy jp5 Chart Complete MTDD
--- NOTE | 2016-04-16 04:01 | EDDOCDS ---
Nurse's Notes [facility] Name: Dayton Gill Age: 75 yrs Sex: Male : 1940 Arrival Date: 04/13/2016 Time: 15:56 Bed 5 Private MD: Diamond Keyes L. Diagnosis: Concussion without loss of consciousness;Abnormal findings on diagnostic imaging of central nervous system-cerebral contusion Presentation: 04/13 16:01 Presenting complaint: EMS states: tripped and fell striking his head, denies LOC. pt is pml on blood thinners. Adult Sepsis Screening: The patient does not have new or worsening altered mentation. Patient's respiratory rate is less than 22. Systolic blood pressure is greater than 100. Patient has a qSOFA score of 0- Negative Sepsis Screen. Suicide/Homicide risk assessment- the patient denies having any suicidal and/or homicidal ideations and does not present with any other emotional, behavioral or mental health complaints. Status: Patient is not a senior director creative services or dependent. Transition of care: patient was not received from another setting of care. 16:01 Acuity: KARTIK Level 2 pml 16:01 Method Of Arrival: Ambulance pml Triage Assessment: 16:22 General: Appears in no apparent distress, comfortable, Behavior is appropriate for age, pml cooperative. Pain: Location: anterior aspect of right shoulder Pain currently is 7 out of 10 on a pain scale. The patient is triaged at the bedside. See Assessment in Nurses Notes section of ED record. Neurological: Level of Consciousness is awake, alert, Oriented to person, place. Neurological: Reports feeling "off balance" just prior to fall. Cardiovascular: Capillary refill < 3 seconds Rhythm is sinus rhythm No ectopy. Respiratory: Airway is patent Respiratory effort is even, unlabored. GI: Abdomen is non- distended. Derm: Skin is pink, warm & dry. Musculoskeletal: Circulation, motion, and sensation intact Capillary refill is > 3 seconds. Injury Description: Abrasion sustained to anterior aspect of right shoulder is scabbed, Bruise sustained to right eye Laceration sustained to middle aspect of right eyebrow and outer aspect of right eyebrow is jagged, superficial, 2.6 to 7.5 cm long, bleeding controlled, large amount of bleeding. Historical: - Allergies: no known allergies; - Home Meds: 1. aspirin 81 mg Oral tab 1 tab once daily 2. Cartia XT 120 mg Oral cp24 1 cap 3. digoxin 125 mcg Oral tab Unknown 4. amiodarone 200 mg Oral tab Unknown 5. Xarelto 20 mg oral tab 1 tab once daily 6. citalopram 40 mg Oral tab Unknown 7. memantine 10 mg oral tab Unknown 8. rivastigmine tartrate 1.5 mg oral cap Unknown 9. Folic Acid Oral Unknown 10. ranitidine HCl 150 mg Oral cap 1 cap 2 times per day 11. Colace 100 mg oral cap 1 cap once daily 12. levothyroxine 50 mcg Oral tab 1 tab once daily 13. Vitamin D Oral 2000 units daily 14. Vitamin B-12 500 mcg Oral lozg Unknown - PMHx: Atrial Fib; High Cholesterol; Dementia; GERD; Depression; Hypothyroidism; - Family history: Not pertinent. - Social history: Smoking status: Patient states former smoker of tobacco. No barriers to communication noted, The patient speaks fluent [place], Speaks appropriately for age. - : The pt / caregiver states he / she is on anticoagulants: Xarelto Home medication list is obtained from the patient. - Exposure Risk Screening:: None identified. Screenin:25 Screening information is obtained from the patient. Fall risk: No risks identified. pml Assistance ADL's: requires no assistance with activities of daily living. Abuse/DV Screen: The patient / caregiver reports he/she is: not in a situation that causes fear, pain or injury. Nutritional screening: No deficits noted. Advance Directives: There is no active DNR order. home support is adequate. Assessment: 16:25 General: see triage note. pml 17:25 General: Appears in no apparent distress, comfortable, Behavior is appropriate for age, pml cooperative. Pain: Location: anterior aspect of right shoulder Pain currently is 8 out of 10 on a pain scale. Neurological: Level of Consciousness is awake, alert, Oriented to person, place, time. Cardiovascular: Capillary refill < 3 seconds. Respiratory: Airway is patent Respiratory effort is even, unlabored. Derm: Skin is pink, warm & dry. 17:30 General: C Collar removed as per MD Rojas. pml 18:41 General: Wound care completed, pt tolerated well. Resps easy and unlabored, skin p/w/d. pml MD Rojas at bedside for lac repair. 19:15 General: Appears in no apparent distress, comfortable, Behavior is appropriate for age, ko2 cooperative. Pain: Location: right eye and outer aspect of right eyebrow and middle aspect of right eyebrow and right arm and anterior aspect of right shoulder Pain currently is 4 out of 10 on a pain scale. Neurological: Level of Consciousness is awake, alert, Oriented to person, place, time. Respiratory: Airway is patent Respiratory effort is even, unlabored. Derm: Skin is pink, warm & dry. 20:34 General: Appears in no apparent distress, comfortable, Behavior is appropriate for age, ko2 cooperative. Neurological: Level of Consciousness is awake, alert, Oriented to person, place, time. Respiratory: Airway is patent Respiratory effort is even, unlabored. Derm: Skin is pink, warm & dry. 21:30 General: Appears in no apparent distress, comfortable, Behavior is appropriate for age, ko2 cooperative. Neurological: Level of Consciousness is awake, alert. Respiratory: Airway is patent Respiratory effort is even, unlabored. Derm: Skin is pink, warm & dry. 22:30 General: Appears in no apparent distress, comfortable, Behavior is appropriate for age, ko2 cooperative. Neurological: Level of Consciousness is awake, alert. Respiratory: Airway is patent Respiratory effort is even, unlabored. Derm: Skin is Bruising that is Swollen area noted. 23:44 General: Appears in no apparent distress, comfortable, Behavior is appropriate for age, ko2 cooperative. Respiratory: Airway is patent Respiratory effort is even, unlabored. 04/14 00:48 General: Appears in no apparent distress, comfortable, Behavior is appropriate for age, ko2 cooperative. Neurological: Level of Consciousness is awake, alert, Oriented to person, place, time. Respiratory: Airway is patent Respiratory effort is even, unlabored. Derm: Bruising that is Swollen area noted on right eye. 01:22 General: Appears in no apparent distress, comfortable, Behavior is appropriate for age, ko2 cooperative. Pain: Location: right eye. Neurological: Level of Consciousness is awake, alert, Oriented to person, place, time. Respiratory: Airway is patent Respiratory effort is even, unlabored. Derm: Skin is pink, warm & dry. 02:24 General: Appears in no apparent distress, comfortable, Behavior is appropriate for age, ko2 cooperative. Neurological: Level of Consciousness is awake, alert. Respiratory: Airway is patent Respiratory effort is even, unlabored. Derm: Skin is pink, warm & dry. Vital Signs: 02/18 16:17 BP 124 / 75 (auto/); pml 16:18 Pulse 74 MON; Pulse Ox 96% ; pml 16:22 BP 124 / 75; Pulse 74; Resp 18; Pulse Ox 96% on R/A; Pain 8/10; pml 16:32 BP 120 / 78 (auto/); pml 16:33 Pulse 68 MON; Pulse Ox 98% ; pml 16:47 BP 124 / 77 (auto/); pml 16:48 Pulse 68 MON; Pulse Ox 98% ; pml 17:02 BP 127 / 79 (auto/); pml 17:03 Pulse 68 MON; Pulse Ox 98% ; pml 17:16 Pulse 68 MON; Pulse Ox 99% ; pml 17:17 BP 131 / 81 (auto/); pml 17:31 Pulse 62 MON; Pulse Ox 99% ; ko2 17:32 BP 129 / 71 (auto/); ko2 17:47 BP 127 / 70 (auto/); ko2 17:47 Pulse 62 MON; Pulse Ox 98% ; ko2 18:17 Pulse 62 MON; Pulse Ox 99% ; pml 18:17 BP 147 / 76 (auto/); pml 18:32 Pulse 64 MON; Pulse Ox 98% ; pml 18:32 BP 148 / 83 (auto/); pml 18:47 BP 148 / 82 (auto/); ko2 18:47 Pulse 66 MON; Pulse Ox 99% ; ko2 19:02 BP 142 / 82 (auto/); ko2 19:02 Pulse 64 MON; Pulse Ox 98% ; ko2 19:17 BP 139 / 80 (auto/); ko2 19:17 Pulse 62 MON; Pulse Ox 98% ; ko2 19:32 BP 137 / 78 (auto/); ko2 19:32 Pulse 64 MON; Pulse Ox 99% ; ko2 19:46 Pulse 64 MON; Pulse Ox 99% ; ko2 19:47 BP 135 / 78 (auto/); ko2 20:02 BP 139 / 80 (auto/); ko2 20:02 Pulse 62 MON; Pulse Ox 98% ; ko2 20:17 Pulse 64 MON; Pulse Ox 98% ; ko2 20:17 BP 142 / 80 (auto/); ko2 20:31 Pulse 64 MON; Pulse Ox 99% ; ko2 20:32 BP 147 / 79 (auto/); ko2 20:47 Pulse 86 MON; Pulse Ox 96% ; ko2 20:47 BP 144 / 88 (auto/); ko2 21:02 BP 142 / 85 (auto/); ko2 21:02 Pulse 80 MON; Pulse Ox 97% ; ko2 21:32 BP 134 / 80 (auto/); ko2 21:32 Pulse 74 MON; Pulse Ox 97% ; ko2 21:46 Pulse 64 MON; Pulse Ox 97% ; ko2 21:47 BP 138 / 84 (auto/); ko2 22:02 BP 151 / 76 (auto/); ko2 22:02 Pulse 62 MON; Pulse Ox 97% ; ko2 22:17 BP 130 / 76 (auto/); ko2 22:17 Pulse 72 MON; Pulse Ox 97% ; ko2 22:32 BP 135 / 71 (auto/); ko2 22:32 Pulse 64 MON; ko2 23:47 BP 130 / 76 (auto/); ko2 23:48 Pulse 70 MON; Pulse Ox 97% ; ko2 04/14 02:05 BP 129 / 78; Pulse 68; Resp 16; Temp 98.2; Pulse Ox 99% ; Pain 5/10; ko2 Vitals: 04/13 16:12 Log In Time N/A - ambulance arrival. pml ED Course: 15:57 Patient visited by Sachi Helton PCA. ar3 15:57 Lara Correa,RN is Primary Nurse. ar3 15:57 Diamond Keyes is Private Physician. ar3 15:57 Patient moved to Waiting ar3 15:57 Patient moved to 5 ar3 16:02 Triage Initiated pml 16:06 Sis Rojas MD is Attending Physician. fg 16:06 Patient visited by Sis Rojas MD. fg 16:25 Patient visited by Lara Correa,JOJO. pml 16:25 The patient / caregiver is instructed regarding the plan of care and ED course. Patient pml has correct armband on for positive identification. Placed in gown. Bed in low position. Call light in reach. Side rails up X2. equipment monitor phototypesetting on. Pulse ox on. NIBP on. 16:39 CT Head Without Contrast Returned. EDMS 16:39 CT Spine,Cervical W/o Contrast Returned. EDMS 17:12 [facility] [place] Payment Agreement was scanned into [employer] and attached to record. gjb 17:26 Patient visited by Lara Correa RN. pml 17:30 Patient visited by Lara Correa,JOJO. pml 17:31 CT Maxilofacial W/out Contrast Returned. EDMS 18:42 Patient visited by Lara Correa RN. pml 19:04 Heydi Wing RN is Primary Nurse. ko2 19:17 Chest, 1 View Returned. EDMS 19:25 Attending Physician role handed off by Sis Rojas MD mm11 19:25 Roldan Perez DO is Attending Physician. mm11 19:25 Patient visited by Roldan Perez DO. mm11 19:29 Primary Nurse role handed off by Lara Correa RN demetrius 20:11 Shoulder, Complete Returned. EDMS 20:33 Patient visited by Heydi Wing RN. ko2 20:33 Patient visited by Isabel Johnson PCA. demetrius 20:46 Urinalysis Sent. demetrius 20:46 Urine Culture Sent. demetrius 21:25 Patient visited by Heydi Wing RN. ko2 21:25 Inserted saline lock: 20 gauge in right antecubital area. ko2 22:22 Patient visited by Roldan Perez DO. mm11 23:26 Patient visited by Heydi Wing RN. ko2 02 00:20 Patient visited by Heydi Wing RN. ko2 00:50 Patient visited by Heydi Wing RN. ko2 01:01 CT Head without contrast Returned. EDMS 01:11 Gamal Apodaca DO is Hospitalizing Provider. mm11 02:39 No procedures done that require assistance. ko2 09:00 T-Sheet-- Draft Copy was scanned into [employer] and attached to record. jp5 04/15 11:11 Radiology Report was scanned into [employer] and attached to record. gb Administered Medications: 04/13 21:25 Drug: NS 0.9% 1000 ml [sodium chloride 0.9 % intravenous solution] Route: IV; Rate: 100 ko2 mL/hr; Site: right antecubital; Order Results: Lab Order: Basic Metabolic Profile; SPEC'M 04/13/16 16:52 Test: GLUCOSE, FASTING; Value: 102; Range: 83-110; Units: MG/DL; Status: F Test: BLOOD UREA NITROGEN; Value: 21; Range: 7-18; Abnormal: Above high normal; Units: MG/DL; Status: F Test: CREATININE FOR GFR; Value: 1.62; Range: 0.70-1.30; Abnormal: Above high normal; Units: MG/DL; Status: F Test: GLOMERULAR FILTRATION RATE; Value: 44.4; Range: >42; Status: F Test: SODIUM LEVEL; Value: 137; Range: 136-145; Units: MEQ/L; Status: F Test: POTASSIUM SERUM; Value: 4.4; Range: 3.5-5.1; Units: MEQ/L; Status: F Test: CHLORIDE LEVEL; Value: 100; Range: 98-107; Units: MEQ/L; Status: F Test: CARBON DIOXIDE LEVEL; Value: 30; Range: 21-32; Units: MEQ/L; Status: F Test: ANION GAP; Value: 7; Range: 8-16; Abnormal: Below low normal; Units: MEQ/L; Status: F Test: CALCIUM LEVEL; Value: 8.9; Range: 8.8-10.2; Units: MG/DL; Status: F Test Note: ; Units are mL/min/1.73 m2 Chronic Kidney Disease Staging per NKF: Stage I & II GFR >=60 Normal to Mildly Decreased Stage III GFR 30-59 Moderately Decreased Stage IV GFR 15-29 Severely Decreased Stage V GFR <15 Very Little GFR Left ESRD GFR <15 on FRINGE MAKER Lab Order: CBC with Diff; SPEC'M 04/13/16 16:52 Test: WHITE BLOOD COUNT; Value: 5.9; Range: 4.0-10.0; Units: K/mm3; Status: F Test: RED BLOOD COUNT; Value: 4.65; Range: 4.30-6.10; Units: M/mm3; Status: F Test: HEMOGLOBIN; Value: 13.9; Range: 14.0-18.0; Abnormal: Below low normal; Units: g/dl; Status: F Test: HEMATOCRIT; Value: 41.5; Range: 42.0-52.0; Abnormal: Below low normal; Units: %; Status: F Test: MEAN CORPUSCULAR VOLUME; Value: 89.1; Range: 80.0-96.0; Units: fl; Status: F Test: MEAN CORPUSCULAR HEMOGLOBIN; Value: 29.8; Range: 27.0-33.0; Units: pg; Status: F Test: MEAN CORPUSCULAR HGB CONC; Value: 33.4; Range: 32.0-36.5; Units: g/dl; Status: F Test: RED CELL DISTRIBUTION WIDTH; Value: 14.4; Range: 11.5-14.5; Units: %; Status: F Test: PLATELET COUNT, AUTOMATED; Value: 219; Range: 150-450; Units: k/mm3; Status: F Test: NEUTROPHILS %; Value: 75.7; Range: 36.0-66.0; Abnormal: Above high normal; Units: %; Status: F Test: LYMPH %; Value: 11.5; Range: 24.0-44.0; Abnormal: Below low normal; Units: %; Status: F Test: MONO %; Value: 7.6; Range: 0.0-5.0; Abnormal: Above high normal; Units: %; Status: F Test: EOS %; Value: 2.4; Range: 0.0-3.0; Units: %; Status: F Test: BASO %; Value: 1.1; Range: 0.0-1.0; Abnormal: Above high normal; Units: %; Status: F Test: LARGE UNSTAINED CELL %; Value: 1.9; Range: 0.0-4.0; Units: %; Status: F Test: NEUTROPHILS #; Value: 4.5; Range: 1.8-7.7; Units: K/mm3; Status: F Test: LYMPH #; Value: 0.8; Range: 1.5-4.5; Abnormal: Below low normal; Units: K/mm3; Status: F Test: MONO #; Value: 0.5; Range: 0.0-0.8; Units: K/mm3; Status: F Test: EOS #; Value: 0.1; Range: 0.0-0.50; Units: K/mm3; Status: F Test: BASO #; Value: 0.1; Range: 0.0-0.2; Units: K/mm3; Status: F Test: LARGE UNSTAINED CELL #; Value: 0.1; Range: 0.0-0.4; Units: K/mm3; Status: F Lab Order: Urinalysis; SPEC'M 04/13/16 20:44 Test: APPEARANCE, URINE; Value: CLEAR; Range: CLEAR; Status: F Test: COLOR, URINE; Value: YELLOW; Range: YELLOW; Status: F Test: PH,URINE; Value: 8.0; Range: 5.0-9.0; Units: UNITS; Status: F Test: SPECIFIC GRAVITY URINE AUTO; Value: 1.018; Range: 1.002-1.035; Status: F Test: PROTEIN, URINE AUTO; Value: 1+; Range: NEGATIVE; Abnormal: Above high normal; Units: mg/dL; Status: F Test: GLUCOSE, URINE (UA) AUTO; Value: NEGATIVE; Range: NEGATIVE; Units: mg/dL; Status: F Test: KETONE, URINE AUTO; Value: TRACE; Range: NEGATIVE; Abnormal: Above high normal; Units: mg/dL; Status: F Test: UROBILINOGEN, URINE AUTO; Value: 2.0; Range: 0.0-2.0; Abnormal: Above high normal; Units: mg/dL; Status: F Test: BILIRUBIN, URINE AUTO; Value: NEGATIVE; Range: NEGATIVE; Status: F Test: NITRITE, URINE AUTO; Value: NEGATIVE; Range: NEGATIVE; Status: F Test: LEUKOCYTE ESTERASE, URINE AUTO; Value: NEGATIVE; Range: NEGATIVE; Status: F Test: BLOOD, URINE BLOOD; Value: NEGATIVE; Range: NEGATIVE; Status: F Test: WBC, URINE AUTO; Value: 1; Range: 0-3; Units: /HPF; Status: F Test: RBC, URINE AUTO; Value: 2; Range: 0-3; Units: /HPF; Status: F Test: BACTERIA, URINE AUTO; Value: NEGATIVE; Range: NEGATIVE; Status: F Test: SQUAMOUS EPITHELIAL CELL UR AU; Value: 0; Range: 0-6; Units: /HPF; Status: F Test: MUCUS, URINE; Value: SMALL; Range: NEGATIVE; Status: F Test: HYALINE CAST, URINE AUTO; Value: 1; Range: 0-1; Units: /LPF; Status: F Radiology Order: CT Head Without Contrast Test: CT Head Without Contrast REASON FOR EXAMINATION: Trauma; Clinical: Trauma.; ; Comparison: 03/23/2013 .; ; Findings:; Age-related atrophy with periventricular leukomalacia and microvascular ischemic; changes are appreciated. A small sub centimeter high-density focus in the high; left parietal lobe (image 24 - 25) may represent a small acute parenchymal; contusion. No further intracranial hemorrhage or mass/mass effect is appreciated; and no extra-axial hemorrhage or collection is identified. The ventricles and; sulci are symmetric. Wiley-white differentiation is maintained. Calvarium is; intact. Paranasal sinuses and mastoid air cells are clear.; ; Impression:; 1. Very small, subcentimeter parenchymal contusion in the high left parietal; lobe cannot be excluded. No further significant acute intracranial pathology or; trauma/injury appreciated. Follow-up at 6-12 hours may be warranted.; 2. Age related atrophy and microvascular ischemic changes.; ; ; ; Signed by; Cale Romo MD 04/13/2016 04:21 P; Radiology Order: CT Spine,Cervical W/o Contrast Test: CT Spine,Cervical W/o Contrast REASON FOR EXAMINATION: Trauma; Clinical: Trauma .; ; Technique: Axial noncontrast images from the skull base to the thoracic inlet; with coronal and sagittal re-formations; ; Findings:; Moderate to early advanced multilevel degenerative disc osteophyte complexes; noted throughout the cervical spine including osteophytosis, endplate sclerosis; and disc space narrowing. Normal alignment and lordosis is maintained. Cervical; vertebral bodies including transverse processes and spinous processes are intact; and there is no evidence for acute fracture / compression injury or subluxation.; Spinal canal is patent. Posterior elements are intact. Paravertebral soft; tissues are normal.; ; Impression:; Moderate to early advanced multilevel degenerative changes.; No evidence for acute pathology or trauma/injury.; ; ; Signed by; Cale Romo MD 04/13/2016 04:22 P; Radiology Order: CT Maxilofacial W/out Contrast Test: CT Maxilofacial W/out Contrast REASON FOR EXAMINATION: fall; Clinical: Trauma. Fall.; ; Technique: Axial noncontrast images through the facial bones to include the; mandible with coronal and sagittal re-formations.; ; Findings:; The osseous structures are intact and there is no evidence for fracture or; dislocation. Specifically, the bilateral zygomatic arches, nasal bones, and; mandible including bilateral temporomandibular joints appear normal and; symmetric. The sinuses and mastoid air cells are all well aerated and clear; without fluid level to suggest occult trauma. The bilateral orbits including the; globes and intraconal contents appear symmetric and normal. The surrounding soft; tissues are grossly unremarkable.; ; Impression:; Normal maxillofacial CT.; No evidence for acute pathology or trauma/injury.; ; ; Signed by; Cale Romo MD 04/13/2016 05:06 P; Radiology Order: Shoulder, Complete Test: Shoulder, Complete REASON FOR EXAMINATION: fall; Clinical: Trauma. Fall.; ; Technique: Internal rotation, external rotation, and Y view.; ; Findings:; Degenerative changes are appreciated including cortical irregularity and subtle; spurring at the acromioclavicular joint and along the inferior margin of the; humeral head as well as blunting to the glenoid rim and subacromial soft tissue; calcifications. No acute fracture dislocation.; ; Impression:; Osteoarthritic degenerative changes.; No acute fracture or dislocation.; ; ; Signed by; Cale Romo MD 04/13/2016 07:09 P; Radiology Order: Chest, 1 View Test: Chest, 1 View REASON FOR EXAMINATION: Chest Pain; Clinical: Chest pain.; ; Technique: Supine AP.; ; Comparison: 02/06/2010.; ; Findings:; The patient is status post sternotomy and valve replacement. Lung gross; demonstrate chronic changes. No acute consolidation, effusion or pneumothorax.; Skeletal structures intact.; ; Impression:; No acute cardiopulmonary process appreciated.; ; ; Signed by; Cale Romo MD 04/13/2016 07:08 P; Radiology Order: CT Head without contrast Test: CT Head without contrast REASON FOR EXAMINATION: NEUROSURGEON REQUEST, RE-EVAL HEAD BLEED; ; CLINICAL HISTORY: Intracranial hemorrhage. Followup exam.; TECHNIQUE: Multiple axial CT images were obtained through the brain without IV contrast material.; COMMENTS:; Comparison is made to the prior exam performed on 04/13/2016.; No change in the previously described left frontal subcortical white matter intraparenchymal hemorrha; ge.; The largest focus measures 6 mm.; No change in minimal associated edema.; There is normal configuration of sella turcica. There are no intra or extra-axial collections. There; is no mass effect or midline shift. No hydrocephalus is present. The ventricles are symmetrical. No a; bnormal calcifications are present.; There is diffuse age-appropriate cerebellar and cerebral atrophy with proportionally dilated ventricl; es and cortical sulci.; There are bilateral periventricular and subcortical white matter hypolucencies compatible with mild c; hronic microvascular disease.; IMPRESSION:; No change is seen.; Thank you for your kind referral of this patient.; ; ; Outcome: 04/14 01:12 Decision to Hospitalize by Provider. mm11 01:22 CT Study completed. ko2 02:38 Discharge Assessment: Patient awake, alert and oriented x 3. No cognitive and/or ko2 functional deficits noted. Patient verbalized understanding of disposition instructions. patient administered narcotics - no. The following High Risk Discharge criteria are identified: None. Admitted to Med/Surg accompanied by tech, via stretcher, with chart. Condition: stable. Admission hand-off: Report Faxed Fax receipt verified by JOJO Tovar 4 PAV. 02:39 Property :Personal belongings accompany Pt. ko2 03:00 Patient left the ED. mateo Signatures: Dispatcher [employer] EDMS July Barragan RN RN jan Barnhardt, Gloria, Reg Reg Roldan Castro, DO mm11 Sachi Helton, DECORATOR INSPECTOR DECORATOR INSPECTOR ar3 Isabel Johnson, DECORATOR INSPECTOR DECORATOR INSPECTOR Lara Quiñones RN RN pml Ogden, Kari, RN RN ko2 Price, Jennalee jp5 Sis Rojas MD MD fg Beck, Gabriela gjb Chart Complete MTDD
--- NOTE | 2016-04-16 04:01 | EDDOCDS ---
Physician Documentation [facility] Name: Dayton Gill Age: 75 yrs Sex: Male : 1940 Arrival Date: 04/13/2016 Time: 15:56 Bed 5 Private MD: Diamond Keyes L. Disposition: 04/14/16 01:12 Hospitalization ordered by Gamal Apodaca for Inpatient Admission. Preliminary diagnosis are Concussion without loss of consciousness, Abnormal findings on diagnostic imaging of central nervous system - cerebral contusion. - Bed requested for 4 [place]. - Status is Inpatient Admission. mateo - Condition is Stable. - Problem is an ongoing problem. - Symptoms are unchanged. Historical: - Allergies: no known allergies; - Home Meds: 1. aspirin 81 mg Oral tab 1 tab once daily 2. Cartia XT 120 mg Oral cp24 1 cap 3. digoxin 125 mcg Oral tab Unknown 4. amiodarone 200 mg Oral tab Unknown 5. Xarelto 20 mg oral tab 1 tab once daily 6. citalopram 40 mg Oral tab Unknown 7. memantine 10 mg oral tab Unknown 8. rivastigmine tartrate 1.5 mg oral cap Unknown 9. Folic Acid Oral Unknown 10. ranitidine HCl 150 mg Oral cap 1 cap 2 times per day 11. Colace 100 mg oral cap 1 cap once daily 12. levothyroxine 50 mcg Oral tab 1 tab once daily 13. Vitamin D Oral 2000 units daily 14. Vitamin B-12 500 mcg Oral lozg Unknown - PMHx: Atrial Fib; High Cholesterol; Dementia; GERD; Depression; Hypothyroidism; - Family history: Not pertinent. - Social history: Smoking status: Patient states former smoker of tobacco. No barriers to communication noted, The patient speaks fluent [place], Speaks appropriately for age. - : The pt / caregiver states he / she is on anticoagulants: Xarelto Home medication list is obtained from the patient. - Exposure Risk Screening:: None identified. Vital Signs: 04/13 16:17 BP 124 / 75 (auto/); pml 16:18 Pulse 74 MON; Pulse Ox 96% ; pml 16:22 BP 124 / 75; Pulse 74; Resp 18; Pulse Ox 96% on R/A; Pain 8/10; pml 16:32 BP 120 / 78 (auto/); pml 16:33 Pulse 68 MON; Pulse Ox 98% ; pml 16:47 BP 124 / 77 (auto/); pml 16:48 Pulse 68 MON; Pulse Ox 98% ; pml 17:02 BP 127 / 79 (auto/); pml 17:03 Pulse 68 MON; Pulse Ox 98% ; pml 17:16 Pulse 68 MON; Pulse Ox 99% ; pml 17:17 BP 131 / 81 (auto/); pml 17:31 Pulse 62 MON; Pulse Ox 99% ; ko2 17:32 BP 129 / 71 (auto/); ko2 17:47 BP 127 / 70 (auto/); ko2 17:47 Pulse 62 MON; Pulse Ox 98% ; ko2 18:17 Pulse 62 MON; Pulse Ox 99% ; pml 18:17 BP 147 / 76 (auto/); pml 18:32 Pulse 64 MON; Pulse Ox 98% ; pml 18:32 BP 148 / 83 (auto/); pml 18:47 BP 148 / 82 (auto/); ko2 18:47 Pulse 66 MON; Pulse Ox 99% ; ko2 19:02 BP 142 / 82 (auto/); ko2 19:02 Pulse 64 MON; Pulse Ox 98% ; ko2 19:17 BP 139 / 80 (auto/); ko2 19:17 Pulse 62 MON; Pulse Ox 98% ; ko2 19:32 BP 137 / 78 (auto/); ko2 19:32 Pulse 64 MON; Pulse Ox 99% ; ko2 19:46 Pulse 64 MON; Pulse Ox 99% ; ko2 19:47 BP 135 / 78 (auto/); ko2 20:02 BP 139 / 80 (auto/); ko2 20:02 Pulse 62 MON; Pulse Ox 98% ; ko2 20:17 Pulse 64 MON; Pulse Ox 98% ; ko2 20:17 BP 142 / 80 (auto/); ko2 20:31 Pulse 64 MON; Pulse Ox 99% ; ko2 20:32 BP 147 / 79 (auto/); ko2 20:47 Pulse 86 MON; Pulse Ox 96% ; ko2 20:47 BP 144 / 88 (auto/); ko2 21:02 BP 142 / 85 (auto/); ko2 21:02 Pulse 80 MON; Pulse Ox 97% ; ko2 21:32 BP 134 / 80 (auto/); ko2 21:32 Pulse 74 MON; Pulse Ox 97% ; ko2 21:46 Pulse 64 MON; Pulse Ox 97% ; ko2 21:47 BP 138 / 84 (auto/); ko2 22:02 BP 151 / 76 (auto/); ko2 22:02 Pulse 62 MON; Pulse Ox 97% ; ko2 22:17 BP 130 / 76 (auto/); ko2 22:17 Pulse 72 MON; Pulse Ox 97% ; ko2 22:32 BP 135 / 71 (auto/); ko2 22:32 Pulse 64 MON; ko2 23:47 BP 130 / 76 (auto/); ko2 23:48 Pulse 70 MON; Pulse Ox 97% ; ko2 04/14 02:05 BP 129 / 78; Pulse 68; Resp 16; Temp 98.2; Pulse Ox 99% ; Pain 5/10; ko2 Procedures: 04/13 19:23 Laceration repair:. fg Laceration: 19:23 Wound Repair of 3.5cm ( 1.4in ) full thickness laceration to right eye. Distal fg neuro/vascular/tendon intact. Anesthesia: Local anesthetic administered with 2 mls of 1% lidocaine w/ Epi. Wound prep: Simple cleansing by nurse. Skin closed with 5 x 5-0 Ethilon using Simple interrupted sutures. Patient tolerated well. MDM: 16:04 CT Head Without Contrast Ordered. EDMS 16:04 CT Spine,Cervical W/o Contrast Ordered. EDMS 16:28 Apply Amee Collar to Patient. ordered. fg 16:29 Basic Metabolic Profile Ordered. EDMS 16:30 CBC with Diff Ordered. EDMS 16:30 Urinalysis Ordered. EDMS 16:30 Urine Culture Ordered. EDMS 16:30 Shoulder, Complete Ordered. EDMS 16:30 Chest, 1 View Ordered. EDMS 16:30 CT Maxilofacial W/out Contrast Ordered. EDMS 16:59 Financial registration complete. gjb 17:12 [facility] Payment Agreement was scanned into [employer] and attached to record. gjb 19:02 BED REQUEST+ADM ordered. EDMS 20:19 NS 0.9% 1000 ml IV at 100 mL/hr continuous ordered. mm11 20:[facility] ordered. mm11 20:20 [facility] Order complete. ml3 21:37 Basic Metabolic Profile Reviewed. mm11 21:37 CBC with Diff Reviewed. mm11 21:37 Urinalysis Reviewed. mm11 21:37 CT Head Without Contrast Reviewed. mm11 21:37 CT Spine,Cervical W/o Contrast Reviewed. mm11 21:37 CT Maxilofacial W/out Contrast Reviewed. mm11 21:37 Shoulder, Complete Reviewed. mm11 21:37 Chest, 1 View Reviewed. mm11 22:21 [facility] Story Analyst Order ordered. mm11 22:24 Mis Story Analyst Order complete. ml3 22:26 CT Head without contrast Ordered. EDMS 04/14 01:33 Admission / Observation Status ordered. EDMS 02:31 LOW FAT LOW CHOLESTEROL DIET ordered. EDMS 02:32 COMPLETE BLOOD COUNT Ordered. EDMS 02:32 BASIC METABOLIC PROFILE Ordered. EDMS 02:33 PHYSICAL THERAPY EVAL & TREAT ordered. EDMS 09:00 T-Sheet-- Draft Copy was scanned into [employer] and attached to record. jp5 04/15 11:11 Radiology Report was scanned into [employer] and attached to record. gb Administered Medications: 04/13 21:25 Drug: NS 0.9% 1000 ml [sodium chloride 0.9 % intravenous solution] Route: IV; Rate: 100 ko2 mL/hr; Site: right antecubital; Signatures: Dispatcher [employer] EDMT July Barragan RN RN jan Barnhardt, Gloria, Reg Reg gb Param Merrill, Mechanical Energy Engineer Unit ml3 Katarina Chaudhari, RN RN [id number] Roldan Perez, DO mm11 Lara Correa RN RN pml Ogden, Kari, RN RN ko2 Favian Bellamy jp5 Sis Rojas MD MD fg Beck, Gabriela gjb The chart was reviewed and I authenticate all verbal orders and agree with the evaluation and treatment provided.Attachments: 17:12 [facility] Payment Agreement gjb 04/14 09:00 T-Sheet-- Draft Copy jp5 Chart Complete MTDD
== END 2016-04-14 14:32 | disposition home or self-care (01) | DRG 87 ==
LOC: M ED 15:56 → M ED INP 04-14 01:29 → M MSPAV 04-14 03:06
PROVIDERS: ADMIT Hospitalist; ATTEND Internal Medicine
DX: S06.320A Contusion and laceration of left cerebrum without loss of consciousness, initial encounter (principal); I48.91 Unspecified atrial fibrillation; E78.5 Hyperlipidemia, unspecified; K59.00 Constipation, unspecified; K21.9 Gastro-esophageal reflux disease without esophagitis; F03.90 Unspecified dementia, unspecified severity, without behavioral disturbance, psychotic disturbance, mood disturbance, and anxiety; R26.81 Unsteadiness on feet; S01.111A Laceration without foreign body of right eyelid and periocular area, initial encounter; E03.9 Hypothyroidism, unspecified; F32.9 Major depressive disorder, single episode, unspecified; E55.9 Vitamin D deficiency, unspecified; Z79.899 Other long term (current) drug therapy; Z79.82 Long term (current) use of aspirin; Z85.46 Personal history of malignant neoplasm of prostate; Z85.828 Personal history of other malignant neoplasm of skin; Z98.61 Coronary angioplasty status; W10.8XXA Fall (on) (from) other stairs and steps, initial encounter; Y92.019 Unspecified place in single-family (private) house as the place of occurrence of the external cause; Y93.01 Activity, walking, marching and hiking; Y99.9 Unspecified external cause status

== ENCOUNTER → 2016-06-26 | Outpatient (REF) | payer MEDICARE, OTHER ==
[~2016-06-26] MED LIST: AMIO20TA PO; ASPI81TA7 PO; ATOR1TAB21 PO; CART120C PO; CITA40TA4 PO; COLA100C3 PO; DIGO0.12 PO; FERR325T16 PO; FOLI1TAB2 PO; MEMA1TAB2 PO; RANI150T PO; RIVA1.5C PO; SYNT50TA PO; VITA200015 PO; VITA500T3 PO; XARE20TA PO
[2016-06-26 16:00] LABS: MEAN CORPUSCULAR HEMOGLOBIN 30.7 pg (27.0-33.0); MEAN CORPUSCULAR HGB CONC 32.8 g/dl (32.0-36.5); MEAN CORPUSCULAR VOLUME 93.9 fl (80.0-96.0); RED CELL DISTRIBUTION WIDTH 13.7 % (11.5-14.5); WHITE BLOOD COUNT 4.8 K/mm3 (4.0-10.0)
[2016-06-26 16:33] LABS: ALBUMIN 3.5 GM/DL (3.2-5.2); BILIRUBIN,TOTAL 0.7 MG/DL (0.2-1.0); CALCIUM LEVEL 9.1 MG/DL (8.8-10.2); CREATININE FOR GFR 1.59 MG/DL (0.70-1.30); GLOMERULAR FILTRATION RATE 45.4 (>42); POTASSIUM SERUM 4.7 MEQ/L (3.5-5.1)
== END ==
LOC: M SFHCPLAZ 12:55
PROVIDERS: ATTEND Nurse Practitioner Adult Health
DX: I48.91 Unspecified atrial fibrillation (principal); N18.3 Chronic kidney disease, stage 3 (moderate); E03.9 Hypothyroidism, unspecified; E55.9 Vitamin D deficiency, unspecified

== ENCOUNTER 2016-11-25 18:18 | Emergency (ER) | payer MEDICARE, OTHER ==
[~2016-11-25] VITALS: Ht 182.9 cm; Wt 75.9 kg
[~2016-11-25 18:18] MED LIST changes: +AMIO200T PO; -AMIO20TA PO; +ASPI1TAB15 PO; -ASPI81TA7 PO; -COLA100C3 PO; +COLA100C5 PO; -FOLI1TAB2 PO; +FOLI1TAB4 PO
--- NOTE | 2016-11-25 19:00 | REPUSA ---
CT of the head Clinical history: fall. Comparison: 04/13/2016. Protocol: Multiple axial CT images obtained with 5 mm slice thickness were obtained through the head without administration of contrast. Findings: The ventricles and sulci are symmetric but prominent in size bilaterally. There are periven tricular areas of low attenuation throughout the deep white matter. There is no evidence of acute hem orrhage or infarct. There is no midline shift, mass effect, or extra-axial fluid collection. The osse ous structures are unremarkable. The visualized paranasal sinuses and mastoid air cells are clear. Impression: No acute hemorrhage or infarct. Findings are consistent with moderate age-related atrophy and chronic small vessel ischemic disease.
[2016-11-25] MEDS ORDERED: BUPIVACAINE HCL 0.5% 10 ML VIAL SC ONE (19:30)
[2016-11-25] MEDS ORDERED: LIDOCAINE W/EPINEPHRINE 1% 20ML VIAL SC ONE (19:30)
--- NOTE | 2016-11-25 19:53 | REP ---
Cervical spine CT study without contrast: History: Injury in a fall. Comparison cervical spine CT is from April 13, 2016. Technique: Helical scanning is acquired. 2 mm axial images are reformatted. Coronal and sagittal multiplanar reformation images are generated and reviewed. CT findings: There is no evidence of cervical spine fracture on axial high resolution CT images. Vertebral body heights are preserved. Alignment is normal. There is degenerative disc disease and osteoarthritic facet hypertrophy at multiple cervical levels, unchanged. There is no evidence of intraspinal or paraspinal hematoma. The degenerative disc disease appears to cause mild central canal stenosis at C5-6, unchanged from comparison study. There is bilateral neural foraminal narrowing from uncovertebral spurring at C5-6 and at C4-5 and to some degree at C6-7. Impression: Degenerative spondylosis changes again noted. No fracture or other acute bony abnormality. Signed by Milton Ford MD 11/25/2016 08:04 P
[2016-11-25 20:45] VITALS: BP 142/75
[2016-11-25] MEDS ORDERED: CLEO300C2 PO (20:50)
== END 2016-11-25 21:18 | disposition home or self-care (01) ==
LOC: M ED 18:18 → EDBD 18:18 → M ED 21:18
DX: S01.511A Laceration without foreign body of lip, initial encounter (principal); W01.198A Fall on same level from slipping, tripping and stumbling with subsequent striking against other object, initial encounter; Y92.410 Unspecified street and highway as the place of occurrence of the external cause; Y93.01 Activity, walking, marching and hiking; Y99.8 Other external cause status; Z79.82 Long term (current) use of aspirin; Z79.899 Other long term (current) drug therapy

== ENCOUNTER → 2017-01-06 | Outpatient (CLI) | payer MEDICARE, OTHER ==
[~2017-01-06] MED LIST changes: +CLEO300C2 PO
== END ==
LOC: M LAB 11:05
PROVIDERS: ATTEND Radiology Radiation Oncology
DX: C61 Malignant neoplasm of prostate (principal)

== ENCOUNTER → 2017-01-08 | Outpatient (CLI) | payer MEDICARE, OTHER ==
--- NOTE | 2017-01-10 06:54 | RADONC ---
RADIATION ONCOLOGY FOLLOWUP NOTE: DATE: 01/08/2017 CHART NUMBER: [id number] DIAGNOSIS: Prostate cancer. STAGE: II, [id number] ECOG PERFORMANCE STATUS: 2 Mr. 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 The patient presents today reporting that he is doing quite well with no complaints at this time related to his radiation therapy or disease. He has no bone pain, urinary or bowel difficulties. The patient has had multiple cardiac issues and is suffering from Alzheimer's disease. REVIEW OF SYSTEMS: The patient's review of systems is positive for dementia secondary to Alzheimer's disease and physical limitations secondary to his old age but is otherwise noncontributory. He denies nausea, vomiting, fevers, chills, night sweats, diplopia, headaches, anxiety or depression, anorexia, weight loss, visual disturbances, chest pain, urinary or bowel difficulties, bone pain, or neurological problems other than his dementia. PHYSICAL EXAMINATION: The patient is a well-developed, well-nourished male in no acute distress. HEENT exam is normocephalic, atraumatic. Extraocular movements are intact. There is no palpable cervical, supraclavicular, infraclavicular, axillary, or inguinal lymphadenopathy present. Lungs are clear to auscultation and percussion. Heart has a regular rate and rhythm. Abdomen is benign with no hepatosplenomegaly, masses, or tenderness. Rectal examination reveals a normal anal sphincter tone. His prostate is smooth with no evidence of nodularity. Skeletal examination reveals no tenderness to pressure or percussion of the bony skeleton. Extremities reveal no clubbing, cyanosis, or edema. Neurologic exam is grossly intact, as is the remainder of the physical examination. ASSESSMENT: The patient is clinically KAYCEE at this time. Considering his other overall problems, I have discharged him from our followup except on a as needed basis. cc: MD Harshad Ramirez MD Bonnie Servage, RN
== END ==
LOC: M ONCR 11:04
PROVIDERS: ATTEND Radiology Radiation Oncology
DX: Z08 Encounter for follow-up examination after completed treatment for malignant neoplasm (principal); Z85.46 Personal history of malignant neoplasm of prostate; Z92.3 Personal history of irradiation

== ENCOUNTER → 2017-03-03 | Outpatient (CLI) | payer MEDICARE, OTHER ==
[2017-03-03 18:44] LABS: ALBUMIN 3.6 GM/DL (3.2-5.2); ALKALINE PHOSPHATASE 27 U/L (45-117); ALT/SGPT 61 U/L (12-78); AST/SGOT 51 U/L (7-37); BILIRUBIN,DIRECT 0.3 MG/DL (0.0-0.2); BILIRUBIN,TOTAL 0.8 MG/DL (0.2-1.0); FREE T4 1.67 NG/DL (0.76-1.46); TOTAL PROTEIN 7.2 GM/DL (6.4-8.2)
== END ==
LOC: M WUC 10:54
DX: Z79.899 Other long term (current) drug therapy (principal)
CPT/HCPCS: 84443

== ENCOUNTER 2017-06-17 18:35 | Emergency (ER) | payer MEDICARE, OTHER ==
[2017-06-17] MEDS: NS 1,000 ML IV (19:29)
[2017-06-17] MEDS ORDERED: ISOVUE-370 76% 100ML VIAL (Q9967) As Ordered (19:34)
[2017-06-17 19:44] LABS: BASO # 0.1 10^3/uL (0.0-0.2); BASO % 0.8 % (0.0-1.0); EOS # 0.1 10^3/uL (0.0-0.50); HEMATOCRIT 37.9 % (42.0-52.0); HEMOGLOBIN 12.6 g/dl (13.5-17.5); IMMATURE GRANULOCYTE % 0.2 % (0-3.0); LYMPH # 1.1 10^3/uL (1.5-4.5); LYMPH % 11.1 % (24.0-44.0); MEAN CORPUSCULAR HEMOGLOBIN 30.1 pg (27.0-33.0); MEAN CORPUSCULAR HGB CONC 33.2 g/dl (32.0-36.5); MEAN CORPUSCULAR VOLUME 90.5 fl (80.0-96.0); MONO # 0.9 10^3/uL (0.0-0.8); MONO % 8.6 % (0.0-5.0); NEUTROPHILS # 7.9 10^3/uL (1.8-7.7); NEUTROPHILS % 78.3 % (36.0-66.0); PLATELET COUNT, AUTOMATED 200 10^3/uL (150-450); RED BLOOD COUNT 4.19 10^6/uL (4.30-6.10); RED CELL DISTRIBUTION WIDTH 14.4 % (11.5-14.5)
[2017-06-17 19:56] LABS: INR 1.24; PROTHROMBIN TIME 15.8 SECONDS (12.4-14.5)
[2017-06-17 20:06] LABS: LACTIC ACID SEPSIS PROTOCOL 2.1 MMOL/L (0.4-2.0)
[2017-06-17 20:07] LABS: ALBUMIN 3.1 GM/DL (3.2-5.2); ALBUMIN/GLOBULIN RATIO 0.91 (1.00-1.93); ALKALINE PHOSPHATASE 26 U/L (45-117); ALT/SGPT 57 U/L (12-78); ANION GAP 6 MEQ/L (8-16); AST/SGOT 41 U/L (7-37); BILIRUBIN,DIRECT 0.2 MG/DL (0.0-0.2); BILIRUBIN,TOTAL 0.7 MG/DL (0.2-1.0); BLOOD UREA NITROGEN 17 MG/DL (7-18); CALCIUM LEVEL 8.6 MG/DL (8.8-10.2); CARBON DIOXIDE LEVEL 29 MEQ/L (21-32); CHLORIDE LEVEL 104 MEQ/L (98-107); CREATININE FOR GFR 1.35 MG/DL (0.70-1.30); GLOMERULAR FILTRATION RATE 54.7 (>42); GLUCOSE, FASTING 130 MG/DL (70-100); LIPASE 289 U/L (73-393); POTASSIUM SERUM 4.5 MEQ/L (3.5-5.1); SODIUM LEVEL 139 MEQ/L (136-145); TOTAL PROTEIN 6.5 GM/DL (6.4-8.2)
== END 2017-06-17 21:11 | disposition short-term general hospital (02) ==
LOC: M ED 18:35
DX: S30.1XXA Contusion of abdominal wall, initial encounter (principal); W01.0XXA Fall on same level from slipping, tripping and stumbling without subsequent striking against object, initial encounter; Y92.009 Unspecified place in unspecified non-institutional (private) residence as the place of occurrence of the external cause; I48.91 Unspecified atrial fibrillation; G30.9 Alzheimer's disease, unspecified; Z86.69 Personal history of other diseases of the nervous system and sense organs; Z86.79 Personal history of other diseases of the circulatory system; Z79.2 Long term (current) use of antibiotics; Z79.82 Long term (current) use of aspirin; Z79.899 Other long term (current) drug therapy; Z79.890 Hormone replacement therapy
CPT/HCPCS: 93005

== ENCOUNTER 2017-06-25 09:29 | Outpatient (RCR) | payer MEDICARE, OTHER | END 2017-07-24 | LOC: M PT 09:29 | DX: Z51.89 Encounter for other specified aftercare (principal); M62.81 Muscle weakness (generalized); S30.1XXD Contusion of abdominal wall, subsequent encounter; W19.XXXD Unspecified fall, subsequent encounter | CPT/HCPCS: 97110 ==

== ENCOUNTER 2017-07-29 10:02 | Outpatient (RCR) | payer MEDICARE, OTHER | END 2017-08-23 | LOC: M PT 07-31 10:45 | DX: Z51.89 Encounter for other specified aftercare (principal); S30.1XXA Contusion of abdominal wall, initial encounter; W19.XXXA Unspecified fall, initial encounter | CPT/HCPCS: 97110 ==

== ENCOUNTER → 2018-01-05 | Outpatient (REF) | payer MEDICARE ==
[2018-01-05 17:13] LABS: HEMOGLOBIN 14.6 g/dl (13.5-17.5); MEAN CORPUSCULAR HGB CONC 32.4 g/dl (32.0-36.5); MEAN CORPUSCULAR VOLUME 92.4 fl (80.0-96.0); PLATELET COUNT, AUTOMATED 220 10^3/uL (150-450); RED BLOOD COUNT 4.87 10^6/uL (4.30-6.10); RED CELL DISTRIBUTION WIDTH 14.4 % (11.5-14.5); WHITE BLOOD COUNT 5.7 10^3/uL (4.0-10.0)
[2018-01-05 17:25] LABS: ALBUMIN 3.7 GM/DL (3.2-5.2); ALBUMIN/GLOBULIN RATIO 1.09 (1.00-1.93); ALKALINE PHOSPHATASE 31 U/L (45-117); ALT/SGPT 67 U/L (12-78); ANION GAP 7 MEQ/L (8-16); AST/SGOT 51 U/L (7-37); BILIRUBIN,TOTAL 0.6 MG/DL (0.2-1.0); BLOOD UREA NITROGEN 16 MG/DL (7-18); CALCIUM LEVEL 9.5 MG/DL (8.8-10.2); CARBON DIOXIDE LEVEL 31 MEQ/L (21-32); CHLORIDE LEVEL 99 MEQ/L (98-107); CHOLESTEROL LEVEL 130 MG/DL (<200); CREATININE FOR GFR 1.24 MG/DL (0.70-1.30); GLOMERULAR FILTRATION RATE > 60.0 (>42); GLUCOSE, FASTING 86 MG/DL (70-100); HDL CHOLESTEROL 52 MG/DL (>40); LDL CHOLESTEROL 56 MG/DL (<100); NON-HDL-C 78 MG/DL; POTASSIUM SERUM 4.2 MEQ/L (3.5-5.1); SODIUM LEVEL 137 MEQ/L (136-145); TOTAL 25(OH) VITAMIN D 51.8 NG/ML (30.0-100.0); TOTAL PROTEIN 7.1 GM/DL (6.4-8.2); TRIGLYCERIDES LEVEL 110 MG/DL (<150)
== END ==
LOC: M SFHCPLAZ 14:28
DX: E03.9 Hypothyroidism, unspecified (principal); I48.91 Unspecified atrial fibrillation; E55.9 Vitamin D deficiency, unspecified; Z86.79 Personal history of other diseases of the circulatory system
CPT/HCPCS: 84443

== ENCOUNTER → 2018-06-04 | Outpatient (CLI) | payer MEDICARE ==
[~2018-06-04] MED LIST changes: +FOLI1TAB11 PO; -FOLI1TAB4 PO
--- NOTE | 2018-06-04 15:29 | REP ---
PA and lateral chest: Comparison is 03/03/2017. The lung gross are clear. There is no interstitial coarsening. There are no pleural effusions. Cardiac size is normal. The farida, mediastinum, and skeletal structures are unchanged and unremarkable for patient age. There are sternotomy wires, unchanged. There are cardiac valve replacements, unchanged. Impression: There is no interstitial coarsening, focal infiltrate or pleural effusion. There are chronic findings as described. No acute cardiopulmonary findings. Electronically Signed by Omar Amaro MD 06/04/2018 03:20 P
[2018-06-04 17:44] LABS: ALBUMIN 3.7 GM/DL (3.2-5.2); BILIRUBIN,DIRECT 0.3 MG/DL (0.0-0.2); BILIRUBIN,TOTAL 0.8 MG/DL (0.2-1.0); FREE T4 1.45 NG/DL (0.76-1.46); THYROID STIMULATING HORMONE 5.96 uIU/ML (0.358-3.740); TOTAL PROTEIN 7.4 GM/DL (6.4-8.2)
== END ==
LOC: M WUC 13:50
PROVIDERS: ATTEND Internal Medicine Cardiovascular Disease
DX: Z51.81 Encounter for therapeutic drug level monitoring (principal); Z79.899 Other long term (current) drug therapy; Z95.2 Presence of prosthetic heart valve

== ENCOUNTER → 2018-12-09 | Outpatient (REF) | payer MEDICARE, OTHER ==
[~2018-12-09] MED LIST changes: +CYAN500T8 PO; -VITA500T3 PO
== END ==
LOC: M SFHCPLAZ 10:24
PROVIDERS: ATTEND Dermatology
DX: D04.5 Carcinoma in situ of skin of trunk (principal); L81.4 Other melanin hyperpigmentation

== ENCOUNTER → 2019-01-05 | Outpatient (REF) | payer MEDICARE, OTHER ==
[2019-01-05 17:57] LABS: HEMATOCRIT 47.7 % (42.0-52.0); HEMOGLOBIN 15.1 g/dl (13.5-17.5); MEAN CORPUSCULAR HEMOGLOBIN 30.6 pg (27.0-33.0); MEAN CORPUSCULAR HGB CONC 31.7 g/dl (32.0-36.5); MEAN CORPUSCULAR VOLUME 96.8 fl (80.0-96.0); PLATELET COUNT, AUTOMATED 212 10^3/uL (150-450); RED BLOOD COUNT 4.93 10^6/uL (4.30-6.10)
[2019-01-05 18:12] LABS: ALBUMIN 3.6 GM/DL (3.2-5.2); BILIRUBIN,TOTAL 0.6 MG/DL (0.2-1.0); CALCIUM LEVEL 9.7 MG/DL (8.8-10.2); CREATININE FOR GFR 1.49 MG/DL (0.70-1.30); GLOMERULAR FILTRATION RATE 48.6 (>42); POTASSIUM SERUM 4.2 MEQ/L (3.5-5.1); THYROID STIMULATING HORMONE 6.23 uIU/ML (0.358-3.740); TOTAL PROTEIN 7.3 GM/DL (6.4-8.2)
[2019-01-05 18:15] LABS: TOTAL 25(OH) VITAMIN D 52.8 NG/ML (30.0-100.0)
== END ==
LOC: M SFHCPLAZ 14:55
PROVIDERS: ATTEND Nurse Practitioner Adult Health
DX: I48.91 Unspecified atrial fibrillation (principal); E03.9 Hypothyroidism, unspecified; E55.9 Vitamin D deficiency, unspecified

== ENCOUNTER → 2019-01-15 | Outpatient (CLI) | payer MEDICARE, OTHER ==
--- NOTE | 2019-01-15 16:58 | REP ---
Examination Requested: Cookie Swallow Reason For Exam: Dysphasia The procedure was performed by KIRA Sheikh, under the direct supervision of Dr. Ford. The procedure was performed with Phoebe Oleary from speech pathology present. 5 ml aliquots of thin, pudding, and nectar consistency barium was administered. Laryngeal penetration was visualized with both thick and nectar thick consistency barium, this penetration progressed to aspiration without a cough response as the exam continued. The detailed report of this examination will be provided by speech pathology. 1.9 minutes of fluoroscopy time was utilized for this procedure. Reviewed by KIRA Yap 01/15/2019 03:02 P Electronically Signed by Milton Ford MD 01/15/2019 04:50 P
== END ==
LOC: M ST 10:56
PROVIDERS: ATTEND Nurse Practitioner Adult Health
DX: R13.10 Dysphagia, unspecified (principal)

== ENCOUNTER 2019-02-09 14:00 | Outpatient (RCR) | payer MEDICARE, OTHER ==
[~2019-02-09 14:00] MED LIST changes: +MEMA10TA19 PO; -MEMA1TAB2 PO
== END 2019-02-23 ==
LOC: M ST 14:00
PROVIDERS: ATTEND Nurse Practitioner Adult Health
DX: R13.11 Dysphagia, oral phase (principal)